=== PATIENT | female | born 1955 | race Caucasian/White ===

== ENCOUNTER 2017-04-05 14:57 | Emergency (ER) | payer SELFPAY ==
[2017-04-05] MEDS ORDERED: ISOVUE-370 76%-LOCM 1 ML ONE (16:11)
[2017-04-05] MEDS ORDERED: Iopamidol 200 41% 50 ML VIAL FS ONE (16:11)
[2017-04-05] MEDS ORDERED: Promethazine HCl 25 MG/ML VIAL ONE (16:12)
[2017-04-05] MEDS ORDERED: Ondansetron HCl/PF 4 MG/2 ML Vial ONE (16:12)
--- NOTE | 2017-04-05 16:29 | RAD ---
PORTABLE CHEST: History: Cough. FINDINGS: No comparison. Heart is upper normal size. Mild vascular engorgement without evidence of overt edema or infiltrate. No effusion. Aortic calcification is seen. IMPRESSION: Heart size upper normal. Lungs are clear with no evidence of focal infiltrate or edema. POS: [facility]
[2017-04-05 17:02] LABS: #Lymphocytes 0.2 thou/uL (1.20-3.40); #Monocytes 0.2 thou/uL (0.11-0.59); #Neutrophils 9.1 thou/uL (1.40-6.50); %Basophils 0.3 % (0.0-1.0); %Eosinophils 0.1 % (0.0-10.0); %Lymphocytes 2.2 % (21.0-51.0); %Monocytes 2.1 % (0.0-10.0); Hematocrit 41.2 % (36.0-47.0); Red Blood Cell (RBC) Count 4.49 mill/uL (4.20-5.40); White Blood Cell (WBC) Count 9.5 thou/uL (4.8-10.8)
[2017-04-05] MEDS ORDERED: Piperacillin/Tazobactam 3.375 GM VIAL ONE (17:20)
[2017-04-05 17:29] LABS: Lactic Acid - Sepsis 2.2 mmol/L (0.5-2.2)
[2017-04-05 17:32] LABS: ALT (SGPT) 25 U/L (8-55); AST (SGOT) 42 U/L (5-34); Alkaline Phosphatase 147 U/L (40-150); Anion Gap 11 mmol/L (10-20); BUN (Urea Nitrogen) 19 mg/dL (9.8-20.1); Bilirubin, Total 4.3 mg/dL (0.2-1.2); Calc. Creatinine Clearance 0 mL/min (70-130); Calcium 8.8 mg/dL (7.8-10.44); Carbon Dioxide 20 mmol/L (22-29); Chloride 105 mmol/L (98-107); Estimated GFR-MDRD 69; Globulin 3.2 g/dL (2.4-3.5); Protein, Total 6.3 g/dL (6.0-8.3)
[2017-04-05 19:58] LABS: Bilirubin Negative (Negative); Blood, Urine Negative (Negative); Glucose, Urine (Dipstick) Negative (Negative); Ketone, Urine Negative (Negative); Nitrite Negative (Negative); Protein, Urine (Dipstick) Negative (Neg-Trace)
[2017-04-05 20:00] LABS: Bacteria/HPF None Seen HPF (None Seen); Hyaline Casts/LPF 0-3 HYALINE CAST LPF (0-3 Hyaline)
[2017-04-05 20:14] LABS: RBC/HPF None Seen HPF (0-3)
--- NOTE | 2017-04-05 21:20 | CT ---
CT ABDOMEN AND PELVIS WITH IV CONTRAST: 04/05/17 HISTORY: Vomiting and back pain, abdominal pain, chills, constipation. FINDINGS: There are dependent changes of the lung bases. The liver demonstrates an irregular surface consisten t with cirrhosis. There is recanalization of the umbilical vein. No liver mass or biliary ductal dil atation is seen. No calcified gallstones are identified. The spleen is enlarged measuring 19.8 cm in AP dimension and 15.2 cm in the CC dimension. Splenic varices are present. The pancreas, adrenal gl ands, and kidneys are normal. No free air, free fluid is seen. A few enlarged retroperitoneal lymph nodes measuring 11 mm in the aortocaval space. There are vascular calcifications without evidence of aneurysmal dilatation of the abdominal aorta. There are calcifications in the uterus indicative of fibroids. The small bowel loops are not abnorma lly dilated. There is prominence in the scanlon of the ascending, descending and sigmoid colon which m ay be due to wall thickening or incomplete distention. There are degenerative changes in the spine. Multiple compressed vertebral bodies are present. There is incomplete visualization of a 17 mm right femoral lymph node with peripheral enhancement and central necrosis. IMPRESSION: 1. Cirrhosis of the liver. 2. Splenomegaly with splenic varices. 3. Uterine fibroids. 4. Wall thickening versus incomplete distention of the colon. POS: [facility]
[2017-04-05] MEDS ORDERED: Ibuprofen 800 MG TAB ONE (22:39)
[2017-04-05] MEDS ORDERED: Acetaminophen 500 MG TAB ONE (22:39)
== END 2017-04-05 22:38 | disposition home or self-care (01) ==
LOC: ERS 14:57
DX: R11.2 Nausea with vomiting, unspecified (principal); I10 Essential (primary) hypertension; G47.30 Sleep apnea, unspecified; J45.909 Unspecified asthma, uncomplicated; E66.9 Obesity, unspecified; G89.29 Other chronic pain; M54.9 Dorsalgia, unspecified; Z87.891 Personal history of nicotine dependence
CPT/HCPCS: 36415; 71010; 74177; 80053; 81003; 81015; 83605; 85025; 87040; 87077; 87086; 87149; 87186; 93005; 96365; 96367; 96375; J2405; J2543; J2550

== ENCOUNTER 2017-04-07 08:29 | Inpatient (IN) | payer SELFPAY ==
--- NOTE | 2017-04-07 09:55 | ULT ---
RIGHT LOWER EXTREMITY VENOUS ULTRASOUND: HISTORY: Bilateral lower extremity edema for months. Redness over the last couple of days. Chronic pain. TECHNIQUE: Multiplanar, stovall scale, and color Doppler images were obtained in a right lower extremity venous ul trasound. Spectral analysis of the Doppler waveforms was performed. FINDINGS: The right common femoral vein, profunda femoral vein, superficial femoral vein, and popliteal vein a re normal in appearance without evidence of thrombus. The vessels demonstrate normal compression, f low, and augmentation. The posterior tibial vein and greater saphenous vein are also patent. IMPRESSION: No evidence of right lower extremity deep vein thrombosis. POS: [facility]
[2017-04-07] MEDS ORDERED: Furosemide 40 MG/4 ML VIAL ONE (09:57)
[2017-04-07] MEDS ORDERED: cefTRIAXone\\ROCEPHIN 2 GM VIAL ONE (09:57)
[2017-04-07] MEDS ORDERED: Sodium Chloride 0.9% 100 ML ONE (09:57)
[2017-04-07 10:21] LABS: #Lymphocytes 0.6 thou/uL (1.20-3.40); #Monocytes 0.8 thou/uL (0.11-0.59); %Basophils 0.3 % (0.0-1.0); %Eosinophils 0.1 % (0.0-10.0); %Lymphocytes 5.4 % (21.0-51.0); %Monocytes 7.3 % (0.0-10.0); Hematocrit 37.7 % (36.0-47.0); Mean Platelet Volume 8.7 fL (7.4-10.4); Red Blood Cell (RBC) Count 4.14 mill/uL (4.20-5.40); White Blood Cell (WBC) Count 10.3 thou/uL (4.8-10.8)
[2017-04-07 10:37] LABS: Lactic Acid - Sepsis 2.5 mmol/L (0.5-2.2)
[2017-04-07 10:40] LABS: ALT (SGPT) 33 U/L (8-55); AST (SGOT) 65 U/L (5-34); Alkaline Phosphatase 123 U/L (40-150); Anion Gap 10 mmol/L (10-20); BUN (Urea Nitrogen) 24 mg/dL (9.8-20.1); Bilirubin, Total 2.1 mg/dL (0.2-1.2); Calc. Creatinine Clearance 0 mL/min (70-130); Calcium 8.7 mg/dL (7.8-10.44); Carbon Dioxide 24 mmol/L (22-29); Chloride 100 mmol/L (98-107); Estimated GFR-MDRD 70; Globulin 3.3 g/dL (2.4-3.5); Protein, Total 6.1 g/dL (6.0-8.3)
[2017-04-07] MEDS ORDERED: Vancomycin HCl 1.5 GM, Admixture Fee 1 EACH in Sodium Chloride 0.9% 250 ML 300 ML IVPB SCH (11:00)
[2017-04-07 13:25] LABS: Magnesium 1.6 mg/dL (1.6-2.6)
[2017-04-07 13:33] LABS: Phosphorus 1.3 mg/dL (2.3-4.7)
[2017-04-07] MEDS ORDERED: Mag-Al 1200 mg/1200 mg/30 ML UDCUP PO PRN (13:49)
[2017-04-07] MEDS ORDERED: hydrALAZINE 20 MG/ML VIAL SLOW IVP PRN (13:49)
[2017-04-07] MEDS ORDERED: Senokot 8.6 MG TAB PO PRN (13:49)
[2017-04-07] MEDS ORDERED: Acetaminophen 325 MG TAB PO PRN (13:49)
[2017-04-07] MEDS ORDERED: Ondansetron ODT 4 MG TAB PO PRN (13:49)
[2017-04-07] MEDS ORDERED: Loratadine 10 MG TAB PO PRN (13:49)
[2017-04-07] MEDS ORDERED: Eucerin (Mineral Oil/Petrolatum,White) 30 gm Jar TOP PRN (13:49)
[2017-04-07] MEDS ORDERED: Artificial Tears 18 DROP/0.9 ML EA EYE PRN (13:49)
[2017-04-07] MEDS ORDERED: Ketorolac Tromethamine 30 MG/ML VIAL IVP PRN (13:49)
[2017-04-07] MEDS ORDERED: Loperamide HCl 2 MG CAP PO PRN (13:49)
[2017-04-07] MEDS ORDERED: Diabetic Tussin 200 MG/10 ML UDCUP PO PRN (13:49)
[2017-04-07] MEDS ORDERED: Milk Of Magnesia 30 ML UDCUP PO PRN (13:49)
[2017-04-07] MEDS ORDERED: Sodium Chloride 0.65% Nasal 44 ML BOT EA NARE PRN (13:49)
[2017-04-07] MEDS ORDERED: Chloraseptic Spray 180 ml Bottle PO PRN (13:49)
[2017-04-07] MEDS ORDERED: Morphine 2 MG/ML SYRINGE SLOW IVP PRN (13:49)
[2017-04-07] MEDS ORDERED: Ondansetron HCl/PF 4 MG/2 ML Vial IVP PRN (13:49)
[2017-04-07 13:52] VITALS: BMI 41.8
--- NOTE | 2017-04-07 14:01 | HP ---
PRIMARY CARE PHYSICIAN: [facility] call admission. REASON FOR ADMISSION: Right lower extremity cellulitis. HISTORY OF PRESENT ILLNESS: A 62-year-old female with a history of alcoholic cirrhosis of liver with portal hypertension who presented to the emergency room with complaint of right lower ext remity pain. This patient is new to our system. The patient is originally from [place], [place]. Patient repo rts that when she was young, at that time, she was having heavy alcoholism history. [place] was in [facility] and incarcerated for 14 years. She reports that she was in [facility] nearby [facility] and she was following [facility]. The patient was diagnosed with cirrhosis of liver abou 8-10 years ago. She was taking oral medications. Per patient, she never had upper or lower endos copic evaluation. Patient reports that since she is in custodial system, she has not drunk alcohol. She reports that she has focal cirrhosis. The patient was recently released from care home under probation and currently she lives at [facility]. Patient came into emergency room with complaint of right lower extremity erythema, swelling, and ten derness for last about 2 weeks, which is gradually gotten worse, but for the last 2 days, she is not icing more swollen and more tender, and she was also having fever of 100.6 on Tuesday. She does have chronic low back pain. She also reports dyspnea on exertion. She denies any chest pain, palpitati on, dizziness, syncope. She denies any nausea, vomiting, hematemesis, melena, and hematochezia. Sh e denies any abdominal pain. She denies any urinary tract infection symptoms. This patient came to emergency room on 04/06/2017. At that time, CT abdomen and pelvis was done and the patient was diagnosed with cirrhosis of liver with splenomegaly and splenic varices and uterine fibroid. The patient was given pain medication and discharged back to [facility], but her pain was get ting worse and that is why she decided to come back to the emergency room for evaluation. Today in the emergency room, ultrasound was done which was negative for DVT. Patient has clinical picture of cellulitis. Patient has received vancomycin, Rocephin, and Lasix in the emergency room. At this point, we are a dmitting this patient to medical floor for further treatment. PAST MEDICAL HISTORY: Hypertension, morbid obesity, chronic low back pain, sleep apnea, asthma, cir rhosis of liver with portal hypertension, history of hepatitis C which she reports that treated with medication. PAST SURGICAL HISTORY: Liver biopsy, tubal ligation. PAST PSYCHIATRIC HISTORY: The patient feels anxiety and depression, but she is not on any treatment . SOCIAL HISTORY: Patient reports that when she was young, she was having heavy alcohol abuse history . She is a former drug abuser, abused heroin and speed. She also smoked cigarettes, but she quit s moking and alcohol everything since she was in custodial about 14 years, currently lives at [facility]. FAMILY HISTORY: Hypertension runs among several family members. No strong family history of ruiz ry artery disease, stroke or cancer. ALLERGIES: No known drug allergies. CURRENT HOME MEDICATIONS: Metoprolol 50 mg p.o. b.i.d., Lasix 40 mg p.o. b.i.d., Aldactone 25 mg tw ice daily, and potassium 1 tablet p.o. daily. REVIEW OF SYSTEMS: The following complete review of systems was negative, unless otherwise mentione d in the HPI or below: Constitutional: Weight loss or gain, ability to conduct usual activities. Skin: Rash, itching. Eyes: Double vision, pain. ENT/Mouth: Nose bleeding, neck stiffness, pain, tenderness. Cardiovascular: Palpitations, dyspnea on exertion, orthopnea. Respiratory: Shortness of breath, wheezing, cough, hemoptysis, fever or night sweats. Gastrointestinal: Poor appetite, abdominal pain, heartburn, nausea, vomiting, constipation, or diar wild. Genitourinary: Urgency, frequency, dysuria, nocturia. Musculoskeletal: Pain, swelling. Neurologic/Psychiatric: Anxiety, depression. Allergy/Immunologic: Skin rash, bleeding tendency. Please see my HPI for pertinent positive and negative. All other review of systems reviewed and neg ative except as mentioned in the HPI. EMERGENCY ROOM COURSE: Patient has received vancomycin 1.5 g, Rocephin 2 g, and Lasix 80 mg. PHYSICAL EXAMINATION: VITAL SIGNS: On arrival, blood pressure 145/69, pulse 103, respiratory rate 20, temperature 98.1, s aturation 98% on room air, and weight 107.5 kilograms. GENERAL: Patient is currently alert, awake, no obvious acute distress. HEAD: Normocephalic, atraumatic. EYES: Pupils round, reactive to light. Extraocular muscle intake. No nystagmus, no pallor, no ict erus. Moist mucous membranes. NECK: Supple. Range of motion is normal. No meningeal signs of irritation. No JVD, no thyromegal y, no carotid bruit. LUNGS: Clear to auscultation without any rhonchi or rales. CARDIAC: S1 and S2 regular without any murmur. ABDOMEN: Morbid obesity present. Bowel sounds present, nontender, nondistended. No organomegaly, no mass, no suprapubic tenderness. Morbid obesity limiting examination. BACK: Examination unremarkable, no CVA tenderness. EXTREMITIES: Upper extremity passive movements of all joints are normal. Lower extremity, patient does have bilateral chronic lower extremity edema. Right lower extremity is erythematous, tender an d warm. No calf tenderness. Distal pulsation intact. NEUROLOGIC: Nonfocal examination. No asterixis. Speech normal. Cranial nerves II-XII intact. Mo tor and sensation within normal limits. No focal neurological deficit noted. SKIN: No skin rash other than right lower extremity cellulitis. PSYCHIATRIC: Normal affect. IMAGING AND SIGNIFICANT LABORATORY DATA: 1. Ultrasound of lower extremity negative for any DVT. 2. CT of the abdomen and pelvis which was done a couple of days ago showed cirrhosis of liver, sple nomegaly with splenic varices, uterine fibroid, colon wall thickening. 3. CBC: WBC 10.3, hemoglobin 12.4, platelet 75 with left shift. 4. BMP: Sodium 131, potassium 3.3, chloride 100, carbon dioxide 24, BUN 24, creatinine 0.83, gluco se 153, lactic acid 2.5, calcium 8.7. 5. LFT: Bilirubin 2.1, AST 65, ALT 33, alkaline phosphatase 123, albumin 2.8, BNP 183.2, CRP 15.2. ASSESSMENT AND PLAN/IMPRESSION: 1. Acute right lower extremity cellulitis. This patient has associated sepsis. She has lactic aci dosis. She was having fever at home. She has high CRP and clinical examination with erythema, tend erness, warmth and significant swelling consistent with cellulitis. She does not have any deep veno us thrombosis based on ultrasound. At this point, patient has received vancomycin and Rocephin in [facility] emergency room. We will continue Rocephin after admission as well as vancomycin. Pharmacy will adjust dose of vancomycin. The patient is advised to keep right lower extremity elevated. We will control her pain with morphine 2 mg q.4 hourly p.r.n. and Toradol 15 mg IV q.6 hourly p.r.n. 2. Cirrhosis of liver with portal hypertension. This patient has hyponatremia, abnormal LFT, hypoa lbuminemia, thrombocytopenia as well as previous history of alcoholism and hepatitis C. This patient had CT abdomen which confirmed cirrhosis of liver with portal hypertension. Patient never had any upper and lower endoscopy. We will consult contact lens technician to decide about endoscopic evaluation . We will continue with Lasix, Aldactone, Corgard therapy while in hospital. 3. Hyponatremia likely related with p.o. fluid overload status from cirrhosis of liver. The patien t will need fluid restriction to 1500 mL per day. We will continue with Lasix 20 mg IV b.i.d. We w ill monitor basic metabolic panel. 4. Hypokalemia. We will check magnesium, phosphorus, and replace potassium 40 mEq p.o. b.i.d. and we will repeat basic metabolic panel tomorrow. 5. Lactic acidosis, likely due to underlying sepsis. We will repeat lactic acid level tomorrow. 6. Thrombocytopenia likely due to cirrhosis of liver with hypersplenism. We will avoid heparin pro duct. 7. Morbid obesity. Dietary education given, weight loss education given. Low salt diet discussed with the patient. 8. Hypertension. We will continue Lasix, Aldactone, and Corgard and we will monitor the patient's blood pressure while in hospital. 9. Chronic low back pain. Patient's pain will be controlled with pain medication while in hospital . 10. Anxiety and depression. The patient is not on any specific treatment, but we will consider add ing Prozac upon discharge. 11. Deep venous thrombosis prophylaxis, sequential compression device boots. No Lovenox because of low platelet count. 12. Gastrointestinal prophylaxis, Protonix 40 mg p.o. daily. 13. Asthma. We will continue DuoNeb therapy every 6 hourly. 14. Elevated BNP, likely related with fluid overload status from cirrhosis of liver. CODE STATUS: Patient is FULL CODE. Patient's sister is surrogate decision maker. Disposition plan based on clinical course. We are expecting patient's stay in hospital more than 2 midnights. Plan of care discussed with the patient in detail.
[2017-04-07] MEDS: Potassium Phosphate 15 MMOL in Sodium Chloride 0.9% 250 ML 250 ML IVPB SCH ×2 (14:48→15:49)
[2017-04-07 14:51] LABS: Bilirubin Negative (Negative); Blood, Urine Negative (Negative); Glucose, Urine (Dipstick) Negative (Negative); Ketone, Urine Negative (Negative); Nitrite Negative (Negative); Protein, Urine (Dipstick) Negative (Neg-Trace); Urobilinogen 0.2 mg/dL (0.2-1.0)
[2017-04-07 15:04] LABS: Bacteria/HPF None Seen HPF (None Seen); Hyaline Casts/LPF 4-6 HYALINE CAST LPF (0-3 Hyaline); RBC/HPF 0-3 HPF (0-3); Squamous Epithelial 0-3 HPF (0-3); WBC/HPF 0-3 HPF (0-3)
[2017-04-07 15:20] LABS: Yeast-All Forms None Seen HPF (None Seen)
[2017-04-07] MEDS: Potassium Chloride 20 MEQ TAB PO SCH (15:22)
[2017-04-07] MEDS: Furosemide 20 MG/2 ML VIAL SLOW IVP SCH (15:22)
[2017-04-07] MEDS: HYDROcodone/Acetaminophen 5/325 mg Tablet PO PRN ×2 (15:27→20:06)
[2017-04-07] MEDS: Vancomycin HCl 1.5 GM in Sodium Chloride 0.9% 250 ML 300 ML IVPB SCH (23:03)
--- NOTE | 2017-04-08 03:04 | CON ---
DATE OF CONSULTATION: 04/07/2017 CHIEF COMPLAINT: Leg pain. HISTORY OF PRESENT ILLNESS: Ms. Mora is a 62-year-old woman who was just released from a 14-year senior care sentence 2 days ago. She came to the emergency room yesterday with right lower extremity lorraine n and swelling and she came back today and was diagnosed with cellulitis with sepsis. She had a vas cular ultrasound that was negative for DVT. She was noted to have a history of cirrhosis and GI was consulted to evaluate this. She was diagnosed with cirrhosis 6-8 years ago. She was treated for h epatitis C a year and a half ago with Harvoni and reportedly cleared the virus. She drank alcohol i n the distant past but has been off alcohol for the last 14 years since she has been in senior care. She has had lower extremity swelling and abdominal swelling in the past and has been treated with Lasix and metolazone. She states she has lost from 300 pounds to 236 pounds since starting the diuretics . She has had no ongoing nausea and vomiting. No diarrhea. She has had constipation with small lay rd stools. She has been treated with lactulose in the past for that. She has not had acute confusi on but has had trouble sleeping. She does not recall having had routine screening for hepatoma. Vanessa villavicencio has never had upper or lower endoscopy. PAST MEDICAL HISTORY: Cirrhosis of the liver secondary to past alcohol and hepatitis C, hypertensio n, morbid obesity, chronic back pain, sleep apnea, asthma. PAST SURGICAL HISTORY: Tubal ligation, liver biopsy. FAMILY HISTORY: Negative for GI malignancy or liver disease. SOCIAL HISTORY: She has a history of alcohol abuse and drug abuse including IV drugs prior to her i ncarceration. She has been off all substances for the last 14 years. She does not smoke. ALLERGIES: No known drug allergies. MEDICATIONS: Metoprolol 50 mg twice daily, Lasix 40 mg twice daily, Aldactone 25 mg twice daily, po tassium 1 tablet daily, these were her outpatient medications. Currently, as an inpatient, she is o n ceftriaxone, furosemide 20 mg IV twice daily, magnesium oxide, nadolol, pantoprazole, saccharomyce s, spironolactone 25 mg twice daily, and vancomycin. REVIEW OF SYSTEMS: Negative x10 systems reviewed except as stated in the history of present illness . PHYSICAL EXAMINATION: VITAL SIGNS: Temperature 98.1, pulse 99, respirations 16, blood pressure 121/73. GENERAL: She is in no acute distress. She is alert and oriented x3. HEENT: Eyes have no scleral icterus. Oropharynx is clear without lesions. NECK: No cervical or supraclavicular lymphadenopathy. LUNGS: Clear to auscultation bilaterally. HEART: Regular rate and rhythm. ABDOMEN: Soft, nontender currently. Bowel sounds are present. EXTREMITIES: 2+ pitting lower extremity edema with marked erythema in the right lower extremity wit h cellulitis. SKIN: Also reveals multiple spider angiomas on her upper chest. LABORATORY DATA: White blood cell count 10.3, hemoglobin 12.4, platelets 75. Sodium 131, potassium 3.3, chloride 100, CO2 of 24, BUN 24, creatinine 0.83, bilirubin 2.1, AST 65, ALT 33, alkaline phos phatase 123, albumin 2.8. IMPRESSION: 1. Cirrhosis of the liver secondary to hepatitis C and past alcohol. Her hepatitis C was reportedl y cured with Harvoni. I would check hepatitis C RNA to verify clearance at this point. She is deco mpensated with elevated bilirubin, history of ascites, and portal hypertension with thrombocytopenia . The low sodium can be a negative prognostic sign. Her albumin is low. INR is pending. 2. She is due for hepatoma screening. 3. She is due for varices screening and colon cancer screening. 4. The status of hepatitis A and B exposure or vaccinations not known at this time. RECOMMENDATIONS: 1. Check hepatitis C RNA, check PT/INR, check alpha-fetoprotein. 2. Check ultrasound of the liver for hepatoma screening as well. 3. Check hepatitis A and B immune status. 4. Low-salt diet. She remains on low-dose Aldactone and a higher dose furosemide. 5. Follow up as an outpatient to arrange upper and lower endoscopy. 6. With outpatient followup, she can be referred for liver transplant evaluation; however, currentl y, she does not have insurance. 7. She does have underlying constipation; and therefore, we will start a low dose of lactulose negro y to treat this. 8. She remains on antibiotics for right lower extremity cellulitis. 9. She has been started on nadolol. She did have a CT scan of the abdomen on 04/05/2017, which cecilia wed splenomegaly with splenic varices. It may be reasonable to treat with beta-ang at this poin t. 10. She plans on being in the residential house for 90 days and then will move back home to [place] .
[2017-04-08 04:38] LABS: Prothrombin Time 15.5 SEC (12.0-14.7)
[2017-04-08 04:48] LABS: ALT (SGPT) 30 U/L (8-55); AST (SGOT) 47 U/L (5-34); Alkaline Phosphatase 145 U/L (40-150); Anion Gap 11 mmol/L (10-20); BUN (Urea Nitrogen) 27 mg/dL (9.8-20.1); Bilirubin, Total 1.7 mg/dL (0.2-1.2); Calc. Creatinine Clearance 128 mL/min (70-130); Calcium 8.2 mg/dL (7.8-10.44); Carbon Dioxide 23 mmol/L (22-29); Chloride 99 mmol/L (98-107); Estimated GFR-MDRD 74; Globulin 3.2 g/dL (2.4-3.5); Protein, Total 5.9 g/dL (6.0-8.3)
[2017-04-08 05:15] LABS: Band 7 % (5-11); Hematocrit 37.2 % (36.0-47.0); Mean Platelet Volume 8.6 fL (7.4-10.4); Neutrophil 77 % (42-75); Reactive Lymphocytes 2 % (0-10); Red Blood Cell (RBC) Count 4.08 mill/uL (4.20-5.40); White Blood Cell (WBC) Count 8.9 thou/uL (4.8-10.8)
[2017-04-08] MEDS: Furosemide 20 MG/2 ML VIAL SLOW IVP SCH ×2 (06:21→14:37)
[2017-04-08] MEDS: Saccharomyces boulardii 250 MG CAP PO SCH (08:14)
[2017-04-08] MEDS: Spironolactone 25 MG TAB PO SCH (08:14)
[2017-04-08] MEDS: Potassium Chloride 20 MEQ TAB PO SCH ×2 (08:14→17:24)
[2017-04-08] MEDS: Magnesium Oxide 400 MG TAB PO SCH (08:14)
[2017-04-08] MEDS: Nadolol 40 MG TAB PO SCH (08:14)
[2017-04-08] MEDS: HYDROcodone/Acetaminophen 5/325 mg Tablet PO PRN ×2 (08:17→19:51)
[2017-04-08] MEDS ORDERED: Potassium Phosphate 15 MMOL, Admixture Fee 1 EACH in Sodium Chloride 0.9% 250 ML 250 ML IVPB SCH (08:30)
[2017-04-08] MEDS ORDERED: FLU VACC QS2017-18 36 mo. & older 0.5 ML SYRINGE IM ONE (09:00)
[2017-04-08] MEDS: cefTRIAXone\\ROCEPHIN 2 GM in Sodium Chloride 0.9% 100 ML IVPB SCH (09:24)
--- NOTE | 2017-04-08 11:39 | PDOC.PN ---
- Subjective Encounter Start Date: 04/08/17 Encounter Start Time: 09:00 -: old records requested/rev Patient seen and examined. No new complaints. No overnight events, pt has right leg pain - Objective Resuscitation Status: Resuscitation Status FULL:Full Resuscitation MAR Reviewed: Yes Vital Signs & Weight: Vital Signs (12 hours) Temp Pulse Resp BP BP Pulse Ox 04/08/17 08:00 99.1 F 84 16 98 04/08/17 07:28 99.1 F 84 16 137/79 98 04/08/17 04:00 98.4 F 85 20 116/69 97 04/08/17 00:00 98.0 F 80 20 124/75 98 I&O: 04/07/17 04/08/17 04/09/17 06:59 06:59 06:59 Intake Total 1970 240 Output Total 1800 Balance 170 240 Result Diagrams: 04/08/17 03:56 04/08/17 03:56 Phys Exam - Physical Examination Constitutional: NAD HEENT: PERRLA, moist MMs, sclera anicteric Neck: no JVD, supple Respiratory: no wheezing, no rales, no rhonchi Cardiovascular: RRR, no significant murmur, no rub Gastrointestinal: soft, non-tender, no distention, positive bowel sounds obesity+ Musculoskeletal: pulses present, edema present cellulitis right leg Neurological: non-focal, normal sensation, moves all 4 limbs Psychiatric: normal affect, A&O x 3 Skin: no rash, normal turgor Dx/Plan (1) Cellulitis of right leg Code(s): L03.115 - CELLULITIS OF RIGHT LOWER LIMB Status: Acute (2) Elevated brain natriuretic peptide (BNP) level Code(s): R79.89 - OTHER SPECIFIED ABNORMAL FINDINGS OF BLOOD CHEMISTRY Status : Acute (3) Hypokalemia Code(s): E87.6 - HYPOKALEMIA Status: Acute (4) Hyponatremia Code(s): E87.1 - HYPO-OSMOLALITY AND HYPONATREMIA Status: Acute (5) Hypophosphatemia Code(s): E83.39 - OTHER DISORDERS OF PHOSPHORUS METABOLISM Status: Acute (6) Lactic acidosis Code(s): E87.2 - ACIDOSIS Status: Acute (7) Anxiety and depression Code(s): F41.8 - OTHER SPECIFIED ANXIETY DISORDERS Status: Chronic (8) Asthma Code(s): J45.909 - UNSPECIFIED ASTHMA, UNCOMPLICATED Status: Chronic (9) Cirrhosis of liver Code(s): K74.60 - UNSPECIFIED CIRRHOSIS OF LIVER Status: Chronic (10) Morbid obesity with BMI of 40.0-44.9, adult Code(s): E66.01 - MORBID (SEVERE) OBESITY DUE TO EXCESS CALORIES; Z68.41 - BODY MASS INDEX (BMI) 40.0-44.9, ADULT Status: Chronic (11) Portal hypertension Code(s): K76.6 - PORTAL HYPERTENSION Status: Chronic (12) Thrombocytopenia Code(s): D69.6 - THROMBOCYTOPENIA, UNSPECIFIED Status: Chronic - Plan cont current plan of care, continue antibiotics * continue rocephin and vancomycin for period of time, she will need longer treatment in hospital * GI is not planning to do any procedure this admission * medication reviewed as below * symptomatic treatment * replace potassium phosphate * continue diuresis. Review of Systems - Review of Systems Constitutional: negative: Fever, Chills, Sweats, Weakness, Malaise, Other ENT: negative: Ear Pain, Ear Discharge, Nose Pain, Nose Discharge, Nose Congestion, Mouth Pain, Mouth Swelling, Throat Pain, Throat Swelling, Other Respiratory: negative: Cough, Dry, Shortness of Breath, Hemoptysis, SOB with Excertion, Pleuritic Pain, Sputum, Wheezing Cardiovascular: Edema. negative: Chest Pain, Palpitations, Orthopnea, Paroxysmal Noc. Dyspnea, Light Headedness, Other Gastrointestinal: negative: Nausea, Vomiting, Abdominal Pain, Diarrhea, Constipation, Melena, Hematochezia, Other Genitourinary: negative: Dysuria, Frequency, Incontinence, Hematuria, Retention , Other Musculoskeletal: Leg Pain. negative: Neck Pain, Shoulder Pain, Arm Pain, Back Pain, Hand Pain, Foot Pain, Other - Medications/Allergies Allergies/Adverse Reactions: Allergies Allergy/AdvReac Type Severity Reaction Status Date / Time No Known Allergies Allergy Verified 04/07/17 14:47 Medications: Current Medications Acetaminophen (Tylenol) 650 mg PO Q4H PRN PRN Reason: Headache/Fever or Pain Hydrocodone Bitart/Acetaminophen ([place] 5/325) 1 tab PO Q4H PRN PRN Reason: Moderate Pain (4-6) Last Admin: 04/08/17 08:17 Dose: 1 tab Al Hydroxide/Mg Hydroxide (Maalox) 30 ml PO Q6H PRN PRN Reason: Heartburn or Indigestion Albuterol/Ipratropium (Duoneb) 3 ml NEB [id number] PRN PRN Reason: SOB &/or Wheezing Artificial Tears (Tears Naturale) 0 drop EA EYE PRN PRN PRN Reason: Dry Eyes Furosemide (Lasix) 20 mg SLOW IVP 0600,1400 [facility] Last Admin: 04/08/17 06:21 Dose: 20 mg Guaifenesin (Robitussin Sf) 200 mg PO Q4H PRN PRN Reason: Cough Hydralazine HCl (Apresoline) 10 mg SLOW IVP Q4H PRN PRN Reason: Systolic BP > 180 Ceftriaxone Sodium 2 gm/ (Sodium Chloride) 100 mls @ 200 mls/hr IVPB 1000 [facility] Last Admin: 04/08/17 09:24 Dose: 100 mls Vancomycin HCl 1.5 gm/ Sodium (Chloride) 300 mls @ 200 mls/hr IVPB 1200,2359 [facility] Last Admin: 04/07/17 23:03 Dose: 300 mls Potassium Phosphate 15 mmol/Miscellaneous Medication 1 each/ Sodium Chloride 255 mls @ 62.5 mls/hr IVPB ONE [facility] Stop: 04/08/17 12:00 Last Admin: 04/08/17 10:24 Dose: 255 mls Ketorolac Tromethamine (Toradol) 15 mg IVP Q6H PRN PRN Reason: Pain Stop: 04/12/17 13:50 Loperamide HCl (Imodium) 2 mg PO PRN PRN PRN Reason: Diarrhea/Loose Stools Loratadine (Claritin) 10 mg PO DAILYPRN PRN PRN Reason: Sinus Symptoms Magnesium Hydroxide (Milk Of Magnesium) 30 ml PO DAILYPRN PRN PRN Reason: Constipation Magnesium Oxide (Magnesium Oxide) 400 mg PO DAILY [facility] Last Admin: 04/08/17 08:14 Dose: 400 mg Mineral Oil/White Petrolatum (Eucerin Cream) 0 gm TOP BIDPRN PRN PRN Reason: Dry Skin Miscellaneous Medication (Pharmacy To Dose) 1 each IVPB PRN PRN PRN Reason: Pharmacy to dose Morphine Sulfate (Morphine Sulfate) 2 mg SLOW IVP Q4H PRN PRN Reason: Pain Nadolol (Corgard) 40 mg PO DAILY [facility] Last Admin: 04/08/17 08:14 Dose: 40 mg Ondansetron HCl (Zofran Odt) 4 mg PO Q6H PRN PRN Reason: Nausea/Vomiting Ondansetron HCl (Zofran) 4 mg IVP Q6H PRN PRN Reason: Nausea/Vomiting Pantoprazole Sodium (Protonix) 40 mg PO DAILY [facility] Last Admin: 04/08/17 08:14 Dose: 40 mg Phenol (Chloraseptic [place] 180 Ml Bot) 0 ml PO PRN PRN PRN Reason: Sore Throat Potassium Chloride (K-Dur) 20 meq PO BID-[facility] Last Admin: 04/08/17 08:14 Dose: 20 meq Saccharomyces Boulardii (Florastor) 250 mg PO DAILY [facility] Last Admin: 04/08/17 08:14 Dose: 250 mg Senna (Senokot) 2 tab PO HSPRN PRN PRN Reason: Constipation Sodium Chloride ([place] Nasal [place] 0.65%) 0 ml EA NARE QIDPRN PRN PRN Reason: Nasal Congestion Spironolactone (Aldactone) 25 mg PO QAM-[facility] Last Admin: 04/08/17 08:14 Dose: 25 mg
[2017-04-08] MEDS: Vancomycin HCl 1.5 GM in Sodium Chloride 0.9% 250 ML 300 ML IVPB SCH (14:34)
--- NOTE | 2017-04-08 16:43 | PRG ---
DATE OF SERVICE: 04/08/2017 SUBJECTIVE: Ms. Mora is having some improvements in her left lower extremity discomfort. She has had some intermittent left upper quadrant abdominal pain which is stable. OBJECTIVE: VITAL SIGNS: Temperature 97.6, pulse 60, and blood pressure 121/81. GENERAL: She is in no acute distress, awake and alert. LUNGS: Clear to auscultation bilaterally. HEART: Regular rate and rhythm. ABDOMEN: Soft, nontender, and nondistended. Bowel sounds are present. EXTREMITIES: 2+ pitting lower extremity edema with severe erythema in the right lower extremity. LABORATORY DATA: Hemoglobin 12.1, platelets 72, INR 1.2, bilirubin 1.7, creatinine 0.79, AST 47, AL T 30, alkaline phosphatase 145, and albumin 2.7. IMPRESSION: Cirrhosis of the liver secondary to past hepatitis C, reportedly treated with Rashid w ith clearance of the virus and remote alcohol use. She has been off alcohol for the last 14 years s [place] incarceration. She was just released from long-term few days ago. RECOMMENDATIONS: 1. Await hepatitis C RNA level. Await alphafetoprotein. 2. Low salt diet. 3. Follow up in GI Clinic for further evaluation and management of her liver disease. Should event beto undergo varices screening with endoscopy and screening colonoscopy. 4. Dr. Scott will be covering the weekend. I will sign off for now. Please call him if needed .
[2017-04-09] MEDS: Vancomycin HCl 1.5 GM in Sodium Chloride 0.9% 250 ML 300 ML IVPB SCH ×3 (01:36→23:23)
[2017-04-09] MEDS: HYDROcodone/Acetaminophen 5/325 mg Tablet PO PRN ×3 (01:40→20:09)
[2017-04-09] MEDS: Furosemide 20 MG/2 ML VIAL SLOW IVP SCH ×2 (06:02→15:57)
[2017-04-09 07:25] LABS: Hepatitis A Total ABS Positive (Negative)
[2017-04-09] MEDS: Saccharomyces boulardii 250 MG CAP PO SCH (08:11)
[2017-04-09] MEDS: Magnesium Oxide 400 MG TAB PO SCH (08:11)
[2017-04-09] MEDS: Spironolactone 25 MG TAB PO SCH (08:11)
[2017-04-09] MEDS: Nadolol 40 MG TAB PO SCH (08:11)
[2017-04-09] MEDS: Potassium Chloride 20 MEQ TAB PO SCH ×2 (08:11→16:00)
[2017-04-09] MEDS: cefTRIAXone\\ROCEPHIN 2 GM in Sodium Chloride 0.9% 100 ML IVPB SCH (10:50)
--- NOTE | 2017-04-09 11:23 | PDOC.PN ---
- Subjective Encounter Start Date: 04/09/17 Encounter Start Time: 08:50 pt continue to have pain in right leg and erythema, no fever - Objective Resuscitation Status: Resuscitation Status FULL:Full Resuscitation MAR Reviewed: Yes Vital Signs & Weight: Vital Signs (12 hours) Temp Pulse Resp BP Pulse Ox 04/09/17 08:23 98.2 F 67 16 130/77 94 L I&O: 04/08/17 04/09/17 04/10/17 06:59 06:59 06:59 Intake Total 1970 2470 Output Total 1800 Balance 170 2470 Result Diagrams: 04/08/17 03:56 04/08/17 03:56 Phys Exam - Physical Examination Constitutional: NAD HEENT: PERRLA, moist MMs, sclera anicteric Neck: no JVD, supple Respiratory: no wheezing, no rales, no rhonchi Cardiovascular: RRR, no significant murmur, no rub Gastrointestinal: soft, non-tender, no distention, positive bowel sounds Musculoskeletal: pulses present, edema present right leg cellulitis Neurological: non-focal, normal sensation, moves all 4 limbs Psychiatric: normal affect, A&O x 3 Skin: no rash, normal turgor Dx/Plan (1) Cellulitis of right leg Code(s): L03.115 - CELLULITIS OF RIGHT LOWER LIMB Status: Acute (2) Elevated brain natriuretic peptide (BNP) level Code(s): R79.89 - OTHER SPECIFIED ABNORMAL FINDINGS OF BLOOD CHEMISTRY Status : Acute (3) Hypokalemia Code(s): E87.6 - HYPOKALEMIA Status: Acute (4) Hyponatremia Code(s): E87.1 - HYPO-OSMOLALITY AND HYPONATREMIA Status: Acute (5) Hypophosphatemia Code(s): E83.39 - OTHER DISORDERS OF PHOSPHORUS METABOLISM Status: Acute (6) Lactic acidosis Code(s): E87.2 - ACIDOSIS Status: Acute (7) Anxiety and depression Code(s): F41.8 - OTHER SPECIFIED ANXIETY DISORDERS Status: Chronic (8) Asthma Code(s): J45.909 - UNSPECIFIED ASTHMA, UNCOMPLICATED Status: Chronic (9) Cirrhosis of liver Code(s): K74.60 - UNSPECIFIED CIRRHOSIS OF LIVER Status: Chronic (10) Morbid obesity with BMI of 40.0-44.9, adult Code(s): E66.01 - MORBID (SEVERE) OBESITY DUE TO EXCESS CALORIES; Z68.41 - BODY MASS INDEX (BMI) 40.0-44.9, ADULT Status: Chronic (11) Portal hypertension Code(s): K76.6 - PORTAL HYPERTENSION Status: Chronic (12) Thrombocytopenia Code(s): D69.6 - THROMBOCYTOPENIA, UNSPECIFIED Status: Chronic - Plan cont current plan of care, continue antibiotics * given her severity of cellulitis, she will need longer than usual treatment with IV antibiotics * medication reviewed as below * symptomatic treatment * pain control. Review of Systems - Review of Systems Constitutional: negative: Fever, Chills, Sweats, Weakness, Malaise, Other Eyes: negative: Pain, Vision Change, Conjunctivae Inflammation, Eyelid Inflammation, Redness, Other ENT: negative: Ear Pain, Ear Discharge, Nose Pain, Nose Discharge, Nose Congestion, Mouth Pain, Mouth Swelling, Throat Pain, Throat Swelling, Other Respiratory: negative: Cough, Dry, Shortness of Breath, Hemoptysis, SOB with Excertion, Pleuritic Pain, Sputum, Wheezing Cardiovascular: negative: Chest Pain, Palpitations, Orthopnea, Paroxysmal Noc. Dyspnea, Edema, Light Headedness, Other Gastrointestinal: negative: Nausea, Vomiting, Abdominal Pain, Diarrhea, Constipation, Melena, Hematochezia, Other Genitourinary: negative: Dysuria, Frequency, Incontinence, Hematuria, Retention , Other Musculoskeletal: Leg Pain. negative: Neck Pain, Shoulder Pain, Arm Pain, Back Pain, Hand Pain, Foot Pain, Other - Medications/Allergies Allergies/Adverse Reactions: Allergies Allergy/AdvReac Type Severity Reaction Status Date / Time No Known Allergies Allergy Verified 04/07/17 14:47 Medications: Current Medications Acetaminophen (Tylenol) 650 mg PO Q4H PRN PRN Reason: Headache/Fever or Pain Hydrocodone Bitart/Acetaminophen ([place] 5/325) 1 tab PO Q4H PRN PRN Reason: Moderate Pain (4-6) Last Admin: 04/09/17 08:46 Dose: 1 tab Al Hydroxide/Mg Hydroxide (Maalox) 30 ml PO Q6H PRN PRN Reason: Heartburn or Indigestion Albuterol/Ipratropium (Duoneb) 3 ml NEB [id number] PRN PRN Reason: SOB &/or Wheezing Artificial Tears (Tears Naturale) 0 drop EA EYE PRN PRN PRN Reason: Dry Eyes Furosemide (Lasix) 20 mg SLOW IVP 0600,1400 [facility] Last Admin: 04/09/17 06:02 Dose: 20 mg Guaifenesin (Robitussin Sf) 200 mg PO Q4H PRN PRN Reason: Cough Hydralazine HCl (Apresoline) 10 mg SLOW IVP Q4H PRN PRN Reason: Systolic BP > 180 Ceftriaxone Sodium 2 gm/ (Sodium Chloride) 100 mls @ 200 mls/hr IVPB 1000 [facility] Last Admin: 04/09/17 10:50 Dose: 100 mls Vancomycin HCl 1.5 gm/ Sodium (Chloride) 300 mls @ 200 mls/hr IVPB 1200,2359 [facility] Last Admin: 04/09/17 01:36 Dose: 300 mls Ketorolac Tromethamine (Toradol) 15 mg IVP Q6H PRN PRN Reason: Pain Stop: 04/12/17 13:50 Loperamide HCl (Imodium) 2 mg PO PRN PRN PRN Reason: Diarrhea/Loose Stools Loratadine (Claritin) 10 mg PO DAILYPRN PRN PRN Reason: Sinus Symptoms Magnesium Hydroxide (Milk Of Magnesium) 30 ml PO DAILYPRN PRN PRN Reason: Constipation Magnesium Oxide (Magnesium Oxide) 400 mg PO DAILY [facility] Last Admin: 04/09/17 08:11 Dose: 400 mg Mineral Oil/White Petrolatum (Eucerin Cream) 0 gm TOP BIDPRN PRN PRN Reason: Dry Skin Miscellaneous Medication (Pharmacy To Dose) 1 each IVPB PRN PRN PRN Reason: Pharmacy to dose Morphine Sulfate (Morphine Sulfate) 2 mg SLOW IVP Q4H PRN PRN Reason: Pain Nadolol (Corgard) 40 mg PO DAILY [facility] Last Admin: 04/09/17 08:11 Dose: 40 mg Ondansetron HCl (Zofran Odt) 4 mg PO Q6H PRN PRN Reason: Nausea/Vomiting Ondansetron HCl (Zofran) 4 mg IVP Q6H PRN PRN Reason: Nausea/Vomiting Pantoprazole Sodium (Protonix) 40 mg PO DAILY [facility] Last Admin: 04/09/17 08:11 Dose: 40 mg Phenol (Chloraseptic [place] 180 Ml Bot) 0 ml PO PRN PRN PRN Reason: Sore Throat Potassium Chloride (K-Dur) 20 meq PO BID-WM [facility] Last Admin: 04/09/17 08:11 Dose: 20 meq Saccharomyces Boulardii (Florastor) 250 mg PO DAILY [facility] Last Admin: 04/09/17 08:11 Dose: 250 mg Senna (Senokot) 2 tab PO HSPRN PRN PRN Reason: Constipation Sodium Chloride ([place] Nasal [place] 0.65%) 0 ml EA NARE QIDPRN PRN PRN Reason: Nasal Congestion Spironolactone (Aldactone) 25 mg PO QAM-WM [facility] Last Admin: 04/09/17 08:11 Dose: 25 mg
[2017-04-10] MEDS: Furosemide 20 MG/2 ML VIAL SLOW IVP SCH ×2 (05:12→14:24)
[2017-04-10 05:38] LABS: Anion Gap 9 mmol/L (10-20); BUN (Urea Nitrogen) 31 mg/dL (9.8-20.1); Calc. Creatinine Clearance 137 mL/min (70-130); Calcium 8.8 mg/dL (7.8-10.44); Carbon Dioxide 30 mmol/L (22-29); Chloride 96 mmol/L (98-107); Estimated GFR-MDRD 80
[2017-04-10 05:46] LABS: Phosphorus 1.9 mg/dL (2.3-4.7)
[2017-04-10 06:22] LABS: Band 6 % (5-11); Hematocrit 38.8 % (36.0-47.0); Mean Platelet Volume 7.8 fL (7.4-10.4); Metamyelocyte 4 % (0-0); Myelocyte 1 % (0-0); Neutrophil 58 % (42-75); Reactive Lymphocytes 2 % (0-10); Red Blood Cell (RBC) Count 4.26 mill/uL (4.20-5.40); White Blood Cell (WBC) Count 12.2 thou/uL (4.8-10.8)
[2017-04-10] MEDS: Saccharomyces boulardii 250 MG CAP PO SCH (07:52)
[2017-04-10] MEDS: Nadolol 40 MG TAB PO SCH (07:53)
[2017-04-10] MEDS: Magnesium Oxide 400 MG TAB PO SCH (07:53)
[2017-04-10] MEDS: Spironolactone 25 MG TAB PO SCH (07:53)
[2017-04-10] MEDS: Potassium Chloride 20 MEQ TAB PO SCH ×2 (07:53→16:38)
[2017-04-10] MEDS: HYDROcodone/Acetaminophen 5/325 mg Tablet PO PRN ×2 (08:12→16:38)
[2017-04-10] MEDS: cefTRIAXone\\ROCEPHIN 2 GM in Sodium Chloride 0.9% 100 ML IVPB SCH (10:10)
[2017-04-10 11:19] LABS: Vancomycin, Trough 21.6 ug/mL
[2017-04-10] MEDS: Vancomycin HCl 1.5 GM in Sodium Chloride 0.9% 250 ML 300 ML IVPB SCH (11:21)
--- NOTE | 2017-04-10 12:13 | PDOC.PN ---
- Subjective Encounter Start Date: 04/10/17 Encounter Start Time: 09:15 pt has serous drainage and blister in right leg, no fever, has leg pain - Objective Resuscitation Status: Resuscitation Status FULL:Full Resuscitation MAR Reviewed: Yes Vital Signs & Weight: Vital Signs (12 hours) Temp Pulse Resp BP Pulse Ox 04/10/17 07:51 98.0 F 68 16 150/67 H 97 I&O: 04/09/17 04/10/17 04/11/17 06:59 06:59 06:59 Intake Total 2470 1770 Balance 2470 1770 Result Diagrams: 04/10/17 04:27 04/10/17 04:27 Phys Exam - Physical Examination Constitutional: NAD HEENT: PERRLA, moist MMs, sclera anicteric Neck: no JVD, supple Respiratory: no wheezing, no rales, no rhonchi Cardiovascular: RRR, no significant murmur, no rub Gastrointestinal: soft, non-tender, no distention, positive bowel sounds Musculoskeletal: pulses present, edema present right leg with erythema, blister and serous drainage Neurological: non-focal, normal sensation, moves all 4 limbs Psychiatric: normal affect, A&O x 3 Skin: no rash, normal turgor Dx/Plan (1) Cellulitis of right leg Code(s): L03.115 - CELLULITIS OF RIGHT LOWER LIMB Status: Acute (2) Elevated brain natriuretic peptide (BNP) level Code(s): R79.89 - OTHER SPECIFIED ABNORMAL FINDINGS OF BLOOD CHEMISTRY Status : Acute (3) Hypokalemia Code(s): E87.6 - HYPOKALEMIA Status: Resolved (4) Hyponatremia Code(s): E87.1 - HYPO-OSMOLALITY AND HYPONATREMIA Status: Acute (5) Hypophosphatemia Code(s): E83.39 - OTHER DISORDERS OF PHOSPHORUS METABOLISM Status: Acute (6) Lactic acidosis Code(s): E87.2 - ACIDOSIS Status: Resolved (7) Anxiety and depression Code(s): F41.8 - OTHER SPECIFIED ANXIETY DISORDERS Status: Chronic (8) Asthma Code(s): J45.909 - UNSPECIFIED ASTHMA, UNCOMPLICATED Status: Chronic (9) Cirrhosis of liver Code(s): K74.60 - UNSPECIFIED CIRRHOSIS OF LIVER Status: Chronic (10) Morbid obesity with BMI of 40.0-44.9, adult Code(s): E66.01 - MORBID (SEVERE) OBESITY DUE TO EXCESS CALORIES; Z68.41 - BODY MASS INDEX (BMI) 40.0-44.9, ADULT Status: Chronic (11) Portal hypertension Code(s): K76.6 - PORTAL HYPERTENSION Status: Chronic (12) Thrombocytopenia Code(s): D69.6 - THROMBOCYTOPENIA, UNSPECIFIED Status: Chronic - Plan cont current plan of care, continue antibiotics * will consult wound care team for skin care * will consult dr hartley as pt has dense cellulitis * medication reviewed as below * symptomatic treatment * continue vancomycin and rocephin * keep leg elevated * pt is from [facility], she may need longer antibiotics in hospital. Review of Systems - Review of Systems Constitutional: negative: Fever, Chills, Sweats, Weakness, Malaise, Other ENT: negative: Ear Pain, Ear Discharge, Nose Pain, Nose Discharge, Nose Congestion, Mouth Pain, Mouth Swelling, Throat Pain, Throat Swelling, Other Respiratory: negative: Cough, Dry, Shortness of Breath, Hemoptysis, SOB with Excertion, Pleuritic Pain, Sputum, Wheezing Cardiovascular: negative: Chest Pain, Palpitations, Orthopnea, Paroxysmal Noc. Dyspnea, Edema, Light Headedness, Other Gastrointestinal: negative: Nausea, Vomiting, Abdominal Pain, Diarrhea, Constipation, Melena, Hematochezia, Other Genitourinary: negative: Dysuria, Frequency, Incontinence, Hematuria, Retention , Other Musculoskeletal: Leg Pain. negative: Neck Pain, Shoulder Pain, Arm Pain, Back Pain, Hand Pain, Foot Pain, Other Skin: negative: Rash, Lesions, [place], Bruising, Other - Medications/Allergies Allergies/Adverse Reactions: Allergies Allergy/AdvReac Type Severity Reaction Status Date / Time No Known Allergies Allergy Verified 04/07/17 14:47 Medications: Current Medications Acetaminophen (Tylenol) 650 mg PO Q4H PRN PRN Reason: Headache/Fever or Pain Hydrocodone Bitart/Acetaminophen ([place] 5/325) 1 tab PO Q4H PRN PRN Reason: Moderate Pain (4-6) Last Admin: 04/10/17 08:12 Dose: 1 tab Al Hydroxide/Mg Hydroxide (Maalox) 30 ml PO Q6H PRN PRN Reason: Heartburn or Indigestion Albuterol/Ipratropium (Duoneb) 3 ml NEB [id number] PRN PRN Reason: SOB &/or Wheezing Artificial Tears (Tears Naturale) 0 drop EA EYE PRN PRN PRN Reason: Dry Eyes Furosemide (Lasix) 20 mg SLOW IVP 0600,1400 [facility] Last Admin: 04/10/17 05:12 Dose: 20 mg Guaifenesin (Robitussin Sf) 200 mg PO Q4H PRN PRN Reason: Cough Hydralazine HCl (Apresoline) 10 mg SLOW IVP Q4H PRN PRN Reason: Systolic BP > 180 Ceftriaxone Sodium 2 gm/ (Sodium Chloride) 100 mls @ 200 mls/hr IVPB 1000 [facility] Last Admin: 04/10/17 10:10 Dose: 100 mls Vancomycin HCl 1.25 gm/ Sodium (Chloride) 250 mls @ 166.667 mls/hr IVPB 1200, 2359 [facility] Ketorolac Tromethamine (Toradol) 15 mg IVP Q6H PRN PRN Reason: Pain Stop: 04/12/17 13:50 Loperamide HCl (Imodium) 2 mg PO PRN PRN PRN Reason: Diarrhea/Loose Stools Loratadine (Claritin) 10 mg PO DAILYPRN PRN PRN Reason: Sinus Symptoms Magnesium Hydroxide (Milk Of Magnesium) 30 ml PO DAILYPRN PRN PRN Reason: Constipation Magnesium Oxide (Magnesium Oxide) 400 mg PO DAILY [facility] Last Admin: 04/10/17 07:53 Dose: 400 mg Mineral Oil/White Petrolatum (Eucerin Cream) 0 gm TOP BIDPRN PRN PRN Reason: Dry Skin Miscellaneous Medication (Pharmacy To Dose) 1 each IVPB PRN PRN PRN Reason: Pharmacy to dose Miscellaneous Medication (Phos-Nak) 1 pkt PO 0800,1600,2359 [facility] Stop: 04/11/17 00:00 Last Admin: 04/10/17 08:16 Dose: 1 pkt Morphine Sulfate (Morphine Sulfate) 2 mg SLOW IVP Q4H PRN PRN Reason: Pain Nadolol (Corgard) 40 mg PO DAILY [facility] Last Admin: 04/10/17 07:53 Dose: 40 mg Ondansetron HCl (Zofran Odt) 4 mg PO Q6H PRN PRN Reason: Nausea/Vomiting Ondansetron HCl (Zofran) 4 mg IVP Q6H PRN PRN Reason: Nausea/Vomiting Pantoprazole Sodium (Protonix) 40 mg PO DAILY [facility] Last Admin: 04/10/17 07:53 Dose: 40 mg Phenol (Chloraseptic [place] 180 Ml Bot) 0 ml PO PRN PRN PRN Reason: Sore Throat Potassium Chloride (K-Dur) 20 meq PO BID-[facility] Last Admin: 04/10/17 07:53 Dose: 20 meq Saccharomyces Boulardii (Florastor) 250 mg PO DAILY [facility] Last Admin: 04/10/17 07:52 Dose: 250 mg Senna (Senokot) 2 tab PO HSPRN PRN PRN Reason: Constipation Sodium Chloride ([place] Nasal [place] 0.65%) 0 ml EA NARE QIDPRN PRN PRN Reason: Nasal Congestion Spironolactone (Aldactone) 25 mg PO QAM-WM [facility] Last Admin: 04/10/17 07:53 Dose: 25 mg
--- NOTE | 2017-04-10 17:59 | CON ---
DATE OF CONSULTATION: 04/10/2017 REASON FOR CONSULTATION: Cellulitis. HISTORY OF PRESENT ILLNESS: A 62-year-old with history of hepatitis C associated advanced liver dis ease, prior alcoholism, who has been admitted with cellulitis in right leg associated with venous in sufficiency, which developed and progressed over the past 2 weeks prior to admission. The patient i s currently at [facility] after being released from [facility]. Some fever associated with it, mostly low grade, some dyspnea. No headaches, visual symptoms, sore throat, odynophagia, dysphagia, no bleedi ng, no vomiting. Some cough. No sputum production. No abdominal pain. Never had ascites or the n eed for paracentesis. No genitourinary symptoms, no diarrhea. Some chronic knee pain, unchanged. PAST MEDICAL HISTORY: Hypertension; chronic hepatitis C, treated successfully about a year and a lay lf ago; portal hypertension; cirrhosis of liver, alcoholism in remission, asthma; venous insufficien cy, previously wearing a compression device, which was reportedly did not fit to her extremity. PAST SURGICAL HISTORY: Includes liver biopsy and tubal ligation. SOCIAL HISTORY: Former smoker, used heroin in the past, alcoholism history, had been incarcerated f or 14 years. Currently at [facility] for 3 months. FAMILY HISTORY: Hypertension. ALLERGIES: None. CURRENT MEDICATIONS: Tylenol, [place], Maalox, DuoNeb, ceftriaxone, furosemide, Toradol, Imodium, Cla ritin, Rocephin, ondansetron and vancomycin. PHYSICAL EXAMINATION: VITAL SIGNS: T-max normal, blood pressure 150/67, pulse 68, respirations 16, O2 sat 97%. SKIN: Shows the area of erythema with some blistering in the right leg, a little shallow ulceration in the left side. Peripheral IV access. No Correa catheter. No lymphadenopathy. HEENT: Ocular movements are conjugate. Sclerae are white. No icterus. Oral cavity is not remarka ble. NECK: Supple. LUNGS: With symmetric clear breath sounds. HEART: S1, S2, regular rate. No S3 or S4. ABDOMEN: Without evidence of ascites. No tenderness, no organomegaly or bladder distention. EXTREMITIES: Evidence of arthrosis in right and left knees. Pulses are 1+ in dorsalis pedis. She has a fairly bulky dressing on the right side. She is able to move the toes, but she has limited mo bility in lower extremities due to the lymphedema and the inflammatory process, right leg. NEUROLOGIC: Cognitive function appears to be intact. Upper extremity strength is preserved. LABORATORY DATA: White cell count 10.3, now 12.2, hemoglobin 12, platelets 137, 86% neutrophils, no w down to 58% neutrophils. Band neutrophils 6%. INR 1.2. Sodium 131, creatinine 0.74, AST 47, alb umin 2.7. CRP 13.97. Urinalysis fairly unremarkable. Vancomycin trough 21. The strep pyogenes, b lood culture 1 set out of 2 positive from 04/05/2017. The usual broad susceptibility profile, vascu lature ultrasound with no evidence of DVT. ASSESSMENT: 1. Advanced liver disease associated hepatitis C, which has been treated successfully according to the patient in the recent past and alcoholism, currently in remission. 2. Venous insufficiency with lymphedema and cellulitis in right leg secondary to group A streptococ cus. DISCUSSION: The patient will be transitioned to Rocephin alone eventually, oral Keflex and then swi tch to Pen VK at the end of 10 days in the outpatient setting. Continue Pen VK 250 mg twice daily f or 1 year. Compression device, either stockings or other type of compression device to manage lymph edema. We will check hepatitis C viral load again to make sure that she is still without hepatitis C viremia.
[2017-04-10] MEDS ORDERED: Vancomycin HCl 1.25 GM in Sodium Chloride 0.9% 250 ML 250 ML IVPB SCH (23:59)
[2017-04-11] MEDS: Furosemide 20 MG/2 ML VIAL SLOW IVP SCH ×2 (05:51→14:54)
[2017-04-11] MEDS: Spironolactone 25 MG TAB PO SCH (07:42)
[2017-04-11] MEDS: Nadolol 40 MG TAB PO SCH (07:42)
[2017-04-11] MEDS: Magnesium Oxide 400 MG TAB PO SCH (07:42)
[2017-04-11] MEDS: Potassium Chloride 20 MEQ TAB PO SCH ×2 (07:42→18:14)
[2017-04-11] MEDS: Saccharomyces boulardii 250 MG CAP PO SCH (07:42)
[2017-04-11] MEDS: HYDROcodone/Acetaminophen 5/325 mg Tablet PO PRN ×3 (09:22→22:24)
[2017-04-11] MEDS: cefTRIAXone\\ROCEPHIN 2 GM in Sodium Chloride 0.9% 100 ML IVPB SCH (09:24)
--- NOTE | 2017-04-11 09:50 | PDOC.PN ---
- Subjective Encounter Start Date: 04/11/17 Encounter Start Time: 09:48 - Objective Resuscitation Status: Resuscitation Status FULL:Full Resuscitation MAR Reviewed: Yes Vital Signs & Weight: Vital Signs (12 hours) Temp Pulse Resp BP BP Pulse Ox 04/11/17 08:00 98.2 F 69 20 135/75 97 04/11/17 04:00 97.7 F 72 18 138/82 94 L 04/11/17 00:00 97.7 F 70 18 139/85 97 I&O: 04/10/17 04/11/17 04/12/17 06:59 06:59 06:59 Intake Total 1770 1750 Balance 1770 1750 Result Diagrams: 04/10/17 04:27 04/10/17 04:27 Additional Labs: Microbiology 04/07/17 10:04 Venous blood - Right Arm Blood Culture - Preliminary NO GROWTH AT 48 HOURS 04/07/17 10:01 Venous blood - Left Arm Blood Culture - Preliminary NO GROWTH AT 48 HOURS Laboratory Tests 04/07/17 04/07/17 04/07/17 10:01 10:01 10:02 WBC 10.3 Plt Count 75 L Phosphorus 1.3 L Total Bilirubin 2.1 H AST 65 H ALT 33 Alkaline Phosphatase C-Reactive Protein 15.23 H Tumor Marker AFP Hepatitis A Ab Total Hep B Core Total Ab 04/08/17 04/08/17 04/08/17 03:56 03:56 03:56 WBC 8.9 Plt Count 72 L Phosphorus Total Bilirubin 1.7 H AST 47 H ALT 30 Alkaline Phosphatase 145 C-Reactive Protein Tumor Marker AFP Hepatitis A Ab Total Hep B Core Total Ab Reactive H 04/08/17 04/08/17 04/08/17 03:56 03:56 03:56 WBC Plt Count Phosphorus 2.0 L Total Bilirubin AST ALT Alkaline Phosphatase C-Reactive Protein Tumor Marker AFP 4.8 Hepatitis A Ab Total Positive A Hep B Core Total Ab 04/10/17 04/10/17 04:27 04:27 WBC 12.2 H Plt Count 137 Phosphorus 1.9 L Total Bilirubin AST ALT Alkaline Phosphatase C-Reactive Protein 13.97 H Tumor Marker AFP Hepatitis A Ab Total Hep B Core Total Ab Laboratory Tests 04/07/17 04/07/17 04/08/17 10:01 22:26 03:56 Lactic Acid 2.5 H 1.3 HCV RNA (PCR) log10 TNP HCV RNA Ultraquant HCV Not Detected Phys Exam - Physical Examination Constitutional: NAD sitting up in chair HEENT: PERRLA, moist MMs, sclera anicteric, oral pharynx no lesions Neck: no nodes, no JVD, supple, full ROM Respiratory: no wheezing, no rales, no rhonchi, clear to auscultation bilateral Cardiovascular: RRR, no significant murmur Gastrointestinal: soft, non-tender, positive bowel sounds distenede Musculoskeletal: pulses present, edema present (+3 pitting edema w oozing/ blistering) Neurological: non-focal, normal sensation, moves all 4 limbs Psychiatric: normal affect, A&O x 3 Skin: no rash Dx/Plan (1) Cellulitis of right leg Code(s): L03.115 - CELLULITIS OF RIGHT LOWER LIMB Status: Acute Comment: on IV ABx.ID following (2) Hyponatremia Code(s): E87.1 - HYPO-OSMOLALITY AND HYPONATREMIA Status: Acute Comment: due to fluid third spacing due to liver disease (3) Hypophosphatemia Code(s): E83.39 - OTHER DISORDERS OF PHOSPHORUS METABOLISM Status: Acute (4) Anxiety and depression Code(s): F41.8 - OTHER SPECIFIED ANXIETY DISORDERS Status: Chronic (5) Asthma Code(s): J45.909 - UNSPECIFIED ASTHMA, UNCOMPLICATED Status: Chronic (6) Cirrhosis of liver Code(s): K74.60 - UNSPECIFIED CIRRHOSIS OF LIVER Status: Chronic Comment: AFP WNL (7) Portal hypertension Code(s): K76.6 - PORTAL HYPERTENSION Status: Chronic Comment: on Nadolol, diuretics (8) Thrombocytopenia Code(s): D69.6 - THROMBOCYTOPENIA, UNSPECIFIED Status: Resolved (9) Lactic acidosis Code(s): E87.2 - ACIDOSIS Status: Resolved (10) Hep C w/o coma, chronic Code(s): B18.2 - CHRONIC VIRAL HEPATITIS C Status: Chronic Comment: HCV RNA undetectable - Plan continue antibiotics, PT/OT, perinatal social worker, out of bed/ambulate, DVT proph w/ SCDs check Abdominal US to check for ascites. -: add zaroxolyn as pt still has significant edema.onm IV lasix & aldactone -: LFt,platelets improving.OP f/u W GI. -: s/p Rx for hep C.RNA negative.AFP normal.chr cirrhosis -: add PT.pt will go to [facility] on DC * .cont ABx. follow final Cx results. * ID following. * am labs. * replace and recheck Phos.LFT etc. * Likley DC in next 24-48 hours,. Review of Systems - Review of Systems Constitutional: Weakness, Malaise. negative: Fever, Chills, Sweats, Other Eyes: negative: Pain, Vision Change, Conjunctivae Inflammation, Eyelid Inflammation, Redness, Other ENT: negative: Ear Pain, Ear Discharge, Nose Pain, Nose Discharge, Nose Congestion, Mouth Pain, Mouth Swelling, Throat Pain, Throat Swelling, Other Respiratory: negative: Cough, Dry, Shortness of Breath, Hemoptysis, SOB with Excertion, Pleuritic Pain, Sputum, Wheezing Cardiovascular: Edema. negative: Chest Pain, Palpitations, Orthopnea, Paroxysmal Noc. Dyspnea, Light Headedness, Other Gastrointestinal: Abdominal Pain. negative: Nausea, Vomiting, Diarrhea, Constipation, Melena, Hematochezia, Other Genitourinary: negative: Dysuria, Frequency, Incontinence, Hematuria, Retention , Other Musculoskeletal: negative: Neck Pain, Shoulder Pain, Arm Pain, Back Pain, Hand Pain, Leg Pain, Foot Pain, Other Neurological: negative: Weakness, Numbness, Incoordination, Change in Speech, Confusion, Seizures, Other - Medications/Allergies Allergies/Adverse Reactions: Allergies Allergy/AdvReac Type Severity Reaction Status Date / Time No Known Allergies Allergy Verified 04/07/17 14:47 Medications: Current Medications Acetaminophen (Tylenol) 650 mg PO Q4H PRN PRN Reason: Headache/Fever or Pain Hydrocodone Bitart/Acetaminophen ([place] 5/325) 1 tab PO Q4H PRN PRN Reason: Moderate Pain (4-6) Last Admin: 04/10/17 16:38 Dose: 1 tab Al Hydroxide/Mg Hydroxide (Maalox) 30 ml PO Q6H PRN PRN Reason: Heartburn or Indigestion Albuterol/Ipratropium (Duoneb) 3 ml NEB [id number] PRN PRN Reason: SOB &/or Wheezing Artificial Tears (Tears Naturale) 0 drop EA EYE PRN PRN PRN Reason: Dry Eyes Furosemide (Lasix) 20 mg SLOW IVP 0600,1400 [facility] Last Admin: 04/11/17 05:51 Dose: 20 mg Guaifenesin (Robitussin Sf) 200 mg PO Q4H PRN PRN Reason: Cough Hydralazine HCl (Apresoline) 10 mg SLOW IVP Q4H PRN PRN Reason: Systolic BP > 180 Ceftriaxone Sodium 2 gm/ (Sodium Chloride) 100 mls @ 200 mls/hr IVPB 1000 [facility] Last Admin: 04/10/17 10:10 Dose: 100 mls Potassium Phosphate 9 mmol/ (Sodium Chloride) 103 mls @ 25 mls/hr IVPB ONE [facility] Ketorolac Tromethamine (Toradol) 15 mg IVP Q6H PRN PRN Reason: Pain Stop: 04/12/17 13:50 Loperamide HCl (Imodium) 2 mg PO PRN PRN PRN Reason: Diarrhea/Loose Stools Loratadine (Claritin) 10 mg PO DAILYPRN PRN PRN Reason: Sinus Symptoms Magnesium Hydroxide (Milk Of Magnesium) 30 ml PO DAILYPRN PRN PRN Reason: Constipation Magnesium Oxide (Magnesium Oxide) 400 mg PO DAILY [facility] Last Admin: 04/11/17 07:42 Dose: 400 mg Mineral Oil/White Petrolatum (Eucerin Cream) 0 gm TOP BIDPRN PRN PRN Reason: Dry Skin Morphine Sulfate (Morphine Sulfate) 2 mg SLOW IVP Q4H PRN PRN Reason: Pain Nadolol (Corgard) 40 mg PO DAILY [facility] Last Admin: 04/11/17 07:42 Dose: 40 mg Ondansetron HCl (Zofran Odt) 4 mg PO Q6H PRN PRN Reason: Nausea/Vomiting Ondansetron HCl (Zofran) 4 mg IVP Q6H PRN PRN Reason: Nausea/Vomiting Pantoprazole Sodium (Protonix) 40 mg PO DAILY [facility] Last Admin: 04/11/17 07:42 Dose: 40 mg Phenol (Chloraseptic [place] 180 Ml Bot) 0 ml PO PRN PRN PRN Reason: Sore Throat Potassium Chloride (K-Dur) 20 meq PO BID-[facility] Last Admin: 04/11/17 07:42 Dose: 20 meq Saccharomyces Boulardii (Florastor) 250 mg PO DAILY [facility] Last Admin: 04/11/17 07:42 Dose: 250 mg Senna (Senokot) 2 tab PO HSPRN PRN PRN Reason: Constipation Sodium Chloride ([place] Nasal [place] 0.65%) 0 ml EA NARE QIDPRN PRN PRN Reason: Nasal Congestion Spironolactone (Aldactone) 25 mg PO QAM-[facility] Last Admin: 04/11/17 07:42 Dose: 25 mg
[2017-04-11] MEDS ORDERED: Potassium Phosphate 9 MMOL, Admixture Fee 1 EACH in Sodium Chloride 0.9% 100 ML IVPB SCH (10:00)
[2017-04-11 12:12] LABS: Hep C PCR-Quant HCV Not Detected IU/mL (.)
[2017-04-11] MEDS ORDERED: Metolazone 5 MG TAB PO SCH (13:30)
[2017-04-12 05:23] LABS: Anion Gap 13 mmol/L (10-20); BUN (Urea Nitrogen) 31 mg/dL (9.8-20.1); Calc. Creatinine Clearance 126 mL/min (70-130); Calcium 8.6 mg/dL (7.8-10.44); Carbon Dioxide 23 mmol/L (22-29); Chloride 99 mmol/L (98-107); Estimated GFR-MDRD 73; Magnesium 2.6 mg/dL (1.6-2.6); Phosphorus 3.1 mg/dL (2.3-4.7)
[2017-04-12 05:24] LABS: ALT (SGPT) 27 U/L (8-55); AST (SGOT) 45 U/L (5-34); Alkaline Phosphatase 166 U/L (40-150); Bilirubin, Direct 0.5 mg/dL (0.1-0.3); Bilirubin, Total 1.4 mg/dL (0.2-1.2); Protein, Total 6.9 g/dL (6.0-8.3)
[2017-04-12] MEDS: Furosemide 20 MG/2 ML VIAL SLOW IVP SCH ×3 (05:43→15:23)
[2017-04-12 05:52] LABS: Anisocytosis SLIGHT = 6-15 cells (100X) (0-5/hpf); Band 4 % (5-11); Hematocrit 39.6 % (36.0-47.0); Mean Platelet Volume 7.4 fL (7.4-10.4); Metamyelocyte 2 % (0-0); Myelocyte 2 % (0-0); Neutrophil 63 % (42-75); Polychromasia SLIGHT = 2-3 cells (100X) (0-2/hpf); Red Blood Cell (RBC) Count 4.47 mill/uL (4.20-5.40)
[2017-04-12] MEDS: Metolazone 2.5 MG TAB PO SCH (07:31)
[2017-04-12] MEDS: Potassium Chloride 20 MEQ TAB PO SCH ×2 (07:31→16:40)
[2017-04-12] MEDS: Nadolol 40 MG TAB PO SCH (07:32)
[2017-04-12] MEDS: Saccharomyces boulardii 250 MG CAP PO SCH (07:32)
[2017-04-12] MEDS: Magnesium Oxide 400 MG TAB PO SCH (07:32)
[2017-04-12] MEDS: Spironolactone 25 MG TAB PO SCH (07:32)
--- NOTE | 2017-04-12 08:21 | ULT ---
ULTRASOUND ABDOMEN: Date: 04/12/17 HISTORY: Abdominal pain, cirrhosis of liver, constipation. FINDINGS: The liver has a nodular appearance consistent with cirrhosis. No focal mass or intrahepatic ductal d ilatation is seen. The spleen is enlarged measuring 14.2 cm. There is sludge in the gallbladder with out gallstones, gallbladder wall thickening, or pericholecystic fluid. The common duct measures 3.0 mm in diameter. The visualized portions of the pancreas, aorta, and IVC are unremarkable. The kidney s appear normal. No free fluid is seen. IMPRESSION: 1. Cirrhosis of the liver. 2. Splenomegaly. 3. Gallbladder sludge. POS: H
--- NOTE | 2017-04-12 10:05 | PDOC.PN ---
- Subjective Encounter Start Date: 04/12/17 Encounter Start Time: 10:04 Subjective: continues to have drainage and pain in right leg w swelling -: no fever.no AP/N/V - Objective Resuscitation Status: Resuscitation Status FULL:Full Resuscitation MAR Reviewed: Yes Vital Signs & Weight: Vital Signs (12 hours) Temp Pulse Resp BP BP Pulse Ox 04/12/17 08:00 97.8 F 61 20 133/73 98 04/12/17 06:52 65 133/77 04/12/17 05:27 97.8 F 63 18 117/57 L 95 04/12/17 00:41 97.8 F 62 16 123/80 95 Weight Admit Weight 235 lb 14.304 oz Weight 235 lb 14.304 oz I&O: 04/11/17 04/12/17 04/13/17 06:59 06:59 06:59 Intake Total 1750 312 Balance 1750 312 Result Diagrams: 04/12/17 04:20 04/12/17 04:20 Additional Labs: Microbiology 04/07/17 10:04 Venous blood - Right Arm Blood Culture - Preliminary NO GROWTH AT 48 HOURS 04/07/17 10:01 Venous blood - Left Arm Blood Culture - Preliminary NO GROWTH AT 48 HOURS Laboratory Tests 04/07/17 04/07/17 04/07/17 10:01 10:01 22:26 WBC 10.3 Phosphorus Magnesium Total Bilirubin 2.1 H AST 65 H ALT 33 Alkaline Phosphatase 123 HCV RNA (PCR) log10 TNP HCV RNA Ultraquant HCV Not Detected 04/08/17 04/08/17 04/10/17 03:56 03:56 04:27 WBC 8.9 12.2 H Phosphorus Magnesium Total Bilirubin 1.7 H AST 47 H ALT 30 Alkaline Phosphatase 145 HCV RNA (PCR) log10 HCV RNA Ultraquant 04/12/17 04/12/17 04/12/17 04:20 04:20 04:20 WBC 14.0 H Phosphorus 3.1 Magnesium 2.6 Total Bilirubin 1.4 H AST 45 H ALT 27 Alkaline Phosphatase 166 H HCV RNA (PCR) log10 HCV RNA Ultraquant Phys Exam - Physical Examination Constitutional: NAD HEENT: PERRLA, moist MMs, sclera anicteric, oral pharynx no lesions Neck: no nodes, no JVD, supple, full ROM Respiratory: no wheezing, no rales, no rhonchi, clear to auscultation bilateral Cardiovascular: RRR, no significant murmur, no rub, gallop Gastrointestinal: soft, non-tender, no distention, positive bowel sounds Musculoskeletal: no edema, pulses present Neurological: non-focal, normal sensation, moves all 4 limbs Psychiatric: normal affect, A&O x 3 Skin: no rash Dx/Plan (1) Cellulitis of right leg Code(s): L03.115 - CELLULITIS OF RIGHT LOWER LIMB Status: Acute Comment: on IV ABx.ID following (2) Hyponatremia Code(s): E87.1 - HYPO-OSMOLALITY AND HYPONATREMIA Status: Acute Comment: due to fluid third spacing due to liver disease (3) Hypophosphatemia Code(s): E83.39 - OTHER DISORDERS OF PHOSPHORUS METABOLISM Status: Acute (4) Anxiety and depression Code(s): F41.8 - OTHER SPECIFIED ANXIETY DISORDERS Status: Chronic (5) Asthma Code(s): J45.909 - UNSPECIFIED ASTHMA, UNCOMPLICATED Status: Chronic (6) Cirrhosis of liver Code(s): K74.60 - UNSPECIFIED CIRRHOSIS OF LIVER Status: Chronic Comment: AFP WNL (7) Portal hypertension Code(s): K76.6 - PORTAL HYPERTENSION Status: Chronic Comment: on Nadolol, diuretics (8) Thrombocytopenia Code(s): D69.6 - THROMBOCYTOPENIA, UNSPECIFIED Status: Resolved (9) Lactic acidosis Code(s): E87.2 - ACIDOSIS Status: Resolved (10) Hep C w/o coma, chronic Code(s): B18.2 - CHRONIC VIRAL HEPATITIS C Status: Chronic Comment: HCV RNA undetectable - Plan continue antibiotics, PT/OT, social services director, respiratory therapy, incentive spirometry, out of bed/ambulate, DVT proph w/SCDs increase Lasix dose.cont zaroxolyn for naother day or two.cont ABx. -: folow Cx results.check am labs.monitor renal Fx/Na etc -: Robi PUENTE to [facility] in 24-48 hours if symptoms improve. -: cont nadolol,aldactone. -: no ascites on US.hemodynamically stable. * . Review of Systems - Review of Systems Constitutional: negative: Fever, Chills, Sweats, Weakness, Malaise, Other Respiratory: negative: Cough, Dry, Shortness of Breath, Hemoptysis, SOB with Excertion, Pleuritic Pain, Sputum, Wheezing Cardiovascular: Edema. negative: Chest Pain, Palpitations, Orthopnea, Paroxysmal Noc. Dyspnea, Light Headedness, Other Gastrointestinal: negative: Nausea, Vomiting, Abdominal Pain, Diarrhea, Constipation, Melena, Hematochezia, Other Genitourinary: negative: Dysuria, Frequency, Incontinence, Hematuria, Retention , Other Musculoskeletal: negative: Neck Pain, Shoulder Pain, Arm Pain, Back Pain, Hand Pain, Leg Pain, Foot Pain, Other Neurological: negative: Weakness, Numbness, Incoordination, Change in Speech, Confusion, Seizures, Other - Medications/Allergies Allergies/Adverse Reactions: Allergies Allergy/AdvReac Type Severity Reaction Status Date / Time No Known Allergies Allergy Verified 04/07/17 14:47 Medications: Current Medications Acetaminophen (Tylenol) 650 mg PO Q4H PRN PRN Reason: Headache/Fever or Pain Hydrocodone Bitart/Acetaminophen ([place] 5/325) 1 tab PO Q4H PRN PRN Reason: Moderate Pain (4-6) Last Admin: 04/11/17 22:24 Dose: 1 tab Al Hydroxide/Mg Hydroxide (Maalox) 30 ml PO Q6H PRN PRN Reason: Heartburn or Indigestion Albuterol/Ipratropium (Duoneb) 3 ml NEB [id number] PRN PRN Reason: SOB &/or Wheezing Artificial Tears (Tears Naturale) 0 drop EA EYE PRN PRN PRN Reason: Dry Eyes Furosemide (Lasix) 20 mg SLOW IVP 0600,1400 [facility] Last Admin: 04/12/17 05:43 Dose: 20 mg Guaifenesin (Robitussin Sf) 200 mg PO Q4H PRN PRN Reason: Cough Hydralazine HCl (Apresoline) 10 mg SLOW IVP Q4H PRN PRN Reason: Systolic BP > 180 Ceftriaxone Sodium 2 gm/ (Sodium Chloride) 100 mls @ 200 mls/hr IVPB 1000 [facility] Last Admin: 04/11/17 09:24 Dose: 100 mls Ketorolac Tromethamine (Toradol) 15 mg IVP Q6H PRN PRN Reason: Pain Stop: 04/12/17 13:50 Loperamide HCl (Imodium) 2 mg PO PRN PRN PRN Reason: Diarrhea/Loose Stools Loratadine (Claritin) 10 mg PO DAILYPRN PRN PRN Reason: Sinus Symptoms Magnesium Hydroxide (Milk Of Magnesium) 30 ml PO DAILYPRN PRN PRN Reason: Constipation Magnesium Oxide (Magnesium Oxide) 400 mg PO DAILY [facility] Last Admin: 04/12/17 07:32 Dose: 400 mg Metolazone (Zaroxolyn) 2.5 mg PO 0830 [facility] Last Admin: 04/12/17 07:31 Dose: 2.5 mg Mineral Oil/White Petrolatum (Eucerin Cream) 0 gm TOP BIDPRN PRN PRN Reason: Dry Skin Morphine Sulfate (Morphine Sulfate) 2 mg SLOW IVP Q4H PRN PRN Reason: Pain Nadolol (Corgard) 40 mg PO DAILY [facility] Last Admin: 04/12/17 07:32 Dose: 40 mg Ondansetron HCl (Zofran Odt) 4 mg PO Q6H PRN PRN Reason: Nausea/Vomiting Ondansetron HCl (Zofran) 4 mg IVP Q6H PRN PRN Reason: Nausea/Vomiting Pantoprazole Sodium (Protonix) 40 mg PO DAILY [facility] Last Admin: 04/12/17 07:32 Dose: 40 mg Phenol (Chloraseptic [place] 180 Ml Bot) 0 ml PO PRN PRN PRN Reason: Sore Throat Potassium Chloride (K-Dur) [facility] Last Admin: 04/12/17 07:31 Dose: 20 meq Saccharomyces Boulardii (Florastor) 250 mg PO DAILY [facility] Last Admin: 04/12/17 07:32 Dose: 250 mg Senna (Senokot) 2 tab PO HSPRN PRN PRN Reason: Constipation Sodium Chloride ([place] Nasal [place] 0.65%) 0 ml EA NARE QIDPRN PRN PRN Reason: Nasal Congestion Sodium Chloride (Flush - Normal Saline) 10 ml IVF Q12HR [facility] Last Admin: 04/12/17 07:33 Dose: 10 ml Sodium Chloride (Flush - Normal Saline) 10 ml IVF PRN PRN PRN Reason: Saline Flush Spironolactone (Aldactone) 25 mg PO QAM-[facility] Last Admin: 04/12/17 07:32 Dose: 25 mg
[2017-04-12] MEDS: cefTRIAXone\\ROCEPHIN 2 GM in Sodium Chloride 0.9% 100 ML IVPB SCH (10:36)
[2017-04-12] MEDS: HYDROcodone/Acetaminophen 5/325 mg Tablet PO PRN ×3 (11:44→23:29)
[2017-04-13 05:13] LABS: #Eosinphils 0.3 thou/uL (0.0-0.7); #Lymphocytes 1.2 thou/uL (1.20-3.40); #Neutrophils 7.1 thou/uL (1.40-6.50); %Basophils 0.2 % (0.0-1.0); %Eosinophils 3.5 % (0.0-10.0); %Lymphocytes 12.3 % (21.0-51.0); %Monocytes 9.9 % (0.0-10.0); Hematocrit 36.1 % (36.0-47.0); Mean Platelet Volume 7.5 fL (7.4-10.4); Red Blood Cell (RBC) Count 4.09 mill/uL (4.20-5.40); White Blood Cell (WBC) Count 9.6 thou/uL (4.8-10.8)
[2017-04-13] MEDS: Furosemide 20 MG/2 ML VIAL SLOW IVP SCH ×2 (05:24→17:13)
[2017-04-13 05:25] LABS: Anion Gap 10 mmol/L (10-20); BUN (Urea Nitrogen) 30 mg/dL (9.8-20.1); Calc. Creatinine Clearance 135 mL/min (70-130); Calcium 8.5 mg/dL (7.8-10.44); Carbon Dioxide 25 mmol/L (22-29); Chloride 98 mmol/L (98-107); Estimated GFR-MDRD 79
[2017-04-13] MEDS: Magnesium Oxide 400 MG TAB PO SCH (08:33)
[2017-04-13] MEDS: Spironolactone 25 MG TAB PO SCH (08:33)
[2017-04-13] MEDS: Nadolol 40 MG TAB PO SCH (08:34)
[2017-04-13] MEDS: Potassium Chloride 20 MEQ TAB PO SCH ×2 (08:34→17:12)
[2017-04-13] MEDS: Saccharomyces boulardii 250 MG CAP PO SCH (08:34)
[2017-04-13] MEDS: Metolazone 2.5 MG TAB PO SCH (08:35)
[2017-04-13] MEDS: cefTRIAXone\\ROCEPHIN 2 GM in Sodium Chloride 0.9% 100 ML IVPB SCH (11:28)
--- NOTE | 2017-04-13 14:30 | PDOC.PN ---
- Subjective Encounter Start Date: 04/13/17 Encounter Start Time: 08:00 -: old records requested/rev Patient seen and examined. No new complaints. No overnight events - Objective Resuscitation Status: Resuscitation Status FULL:Full Resuscitation MAR Reviewed: Yes Vital Signs & Weight: Vital Signs (12 hours) Temp Pulse Resp BP BP Pulse Ox 04/13/17 12:00 97.9 F 61 18 124/75 04/13/17 08:25 97.6 F 61 20 117/59 L 93 L 04/13/17 08:00 97.6 F 61 20 93 L 04/13/17 04:43 97.9 F 67 18 122/74 95 Weight Admit Weight 235 lb 14.304 oz Weight 235 lb 14.304 oz I&O: 04/12/17 04/13/17 04/14/17 06:59 06:59 06:59 Intake Total 312 500 Balance 312 500 Result Diagrams: 04/13/17 04:31 04/13/17 04:31 Phys Exam - Physical Examination Constitutional: NAD HEENT: PERRLA, moist MMs, sclera anicteric Neck: no JVD, supple Respiratory: no wheezing, no rales, no rhonchi Cardiovascular: RRR, no significant murmur, no rub Gastrointestinal: soft, non-tender, no distention, positive bowel sounds Musculoskeletal: pulses present, edema present rigth leg with dressing Neurological: non-focal, normal sensation, moves all 4 limbs Psychiatric: normal affect, A&O x 3 Skin: no rash, normal turgor Dx/Plan (1) Cellulitis of right leg Code(s): L03.115 - CELLULITIS OF RIGHT LOWER LIMB Status: Acute Comment: on IV ABx.ID following (2) Elevated brain natriuretic peptide (BNP) level Code(s): R79.89 - OTHER SPECIFIED ABNORMAL FINDINGS OF BLOOD CHEMISTRY Status : Acute (3) Hypokalemia Code(s): E87.6 - HYPOKALEMIA Status: Resolved (4) Hyponatremia Code(s): E87.1 - HYPO-OSMOLALITY AND HYPONATREMIA Status: Acute Comment: due to fluid third spacing due to liver disease (5) Hypophosphatemia Code(s): E83.39 - OTHER DISORDERS OF PHOSPHORUS METABOLISM Status: Acute (6) Lactic acidosis Code(s): E87.2 - ACIDOSIS Status: Resolved (7) Anxiety and depression Code(s): F41.8 - OTHER SPECIFIED ANXIETY DISORDERS Status: Chronic (8) Asthma Code(s): J45.909 - UNSPECIFIED ASTHMA, UNCOMPLICATED Status: Chronic (9) Cirrhosis of liver Code(s): K74.60 - UNSPECIFIED CIRRHOSIS OF LIVER Status: Chronic Comment: AFP WNL (10) Morbid obesity with BMI of 40.0-44.9, adult Code(s): E66.01 - MORBID (SEVERE) OBESITY DUE TO EXCESS CALORIES; Z68.41 - BODY MASS INDEX (BMI) 40.0-44.9, ADULT Status: Chronic (11) Portal hypertension Code(s): K76.6 - PORTAL HYPERTENSION Status: Chronic Comment: on Nadolol, diuretics (12) Thrombocytopenia Code(s): D69.6 - THROMBOCYTOPENIA, UNSPECIFIED Status: Resolved - Plan cont current plan of care, continue antibiotics * medication reviewed as below * symptomatic treatment * will arrange wound care * ID recommendation noted * continue rocephin and then keflex and PCN VK for prophylaxis. Review of Systems - Review of Systems ENT: negative: Ear Pain, Ear Discharge, Nose Pain, Nose Discharge, Nose Congestion, Mouth Pain, Mouth Swelling, Throat Pain, Throat Swelling, Other Respiratory: negative: Cough, Dry, Shortness of Breath, Hemoptysis, SOB with Excertion, Pleuritic Pain, Sputum, Wheezing Cardiovascular: negative: Chest Pain, Palpitations, Orthopnea, Paroxysmal Noc. Dyspnea, Edema, Light Headedness, Other Gastrointestinal: negative: Nausea, Vomiting, Abdominal Pain, Diarrhea, Constipation, Melena, Hematochezia, Other Genitourinary: negative: Dysuria, Frequency, Incontinence, Hematuria, Retention , Other Musculoskeletal: negative: Neck Pain, Shoulder Pain, Arm Pain, Back Pain, Hand Pain, Leg Pain, Foot Pain, Other - Medications/Allergies Allergies/Adverse Reactions: Allergies Allergy/AdvReac Type Severity Reaction Status Date / Time No Known Allergies Allergy Verified 04/07/17 14:47 Medications: Current Medications Acetaminophen (Tylenol) 650 mg PO Q4H PRN PRN Reason: Headache/Fever or Pain Hydrocodone Bitart/Acetaminophen ([place] 5/325) 1 tab PO Q4H PRN PRN Reason: Moderate Pain (4-6) Last Admin: 04/12/17 23:29 Dose: 1 tab Al Hydroxide/Mg Hydroxide (Maalox) 30 ml PO Q6H PRN PRN Reason: Heartburn or Indigestion Albuterol/Ipratropium (Duoneb) 3 ml NEB Q2IR-DY PRN PRN Reason: SOB &/or Wheezing Artificial Tears (Tears Naturale) 0 drop EA EYE PRN PRN PRN Reason: Dry Eyes Furosemide (Lasix) 40 mg SLOW IVP 0600,1400 [facility] Last Admin: 04/13/17 05:24 Dose: 40 mg Guaifenesin (Robitussin Sf) 200 mg PO Q4H PRN PRN Reason: Cough Hydralazine HCl (Apresoline) 10 mg SLOW IVP Q4H PRN PRN Reason: Systolic BP > 180 Ceftriaxone Sodium 2 gm/ (Sodium Chloride) 100 mls @ 200 mls/hr IVPB 1000 [facility] Last Admin: 04/13/17 11:28 Dose: 100 mls Loperamide HCl (Imodium) 2 mg PO PRN PRN PRN Reason: Diarrhea/Loose Stools Loratadine (Claritin) 10 mg PO DAILYPRN PRN PRN Reason: Sinus Symptoms Magnesium Hydroxide (Milk Of Magnesium) 30 ml PO DAILYPRN PRN PRN Reason: Constipation Magnesium Oxide (Magnesium Oxide) 400 mg PO DAILY [facility] Last Admin: 04/13/17 08:33 Dose: 400 mg Metolazone (Zaroxolyn) 2.5 mg PO 0830 [facility] Last Admin: 04/13/17 08:35 Dose: 2.5 mg Mineral Oil/White Petrolatum (Eucerin Cream) 0 gm TOP BIDPRN PRN PRN Reason: Dry Skin Morphine Sulfate (Morphine Sulfate) 2 mg SLOW IVP Q4H PRN PRN Reason: Pain Nadolol (Corgard) 40 mg PO DAILY [facility] Last Admin: 04/13/17 08:34 Dose: 40 mg Ondansetron HCl (Zofran Odt) 4 mg PO Q6H PRN PRN Reason: Nausea/Vomiting Ondansetron HCl (Zofran) 4 mg IVP Q6H PRN PRN Reason: Nausea/Vomiting Pantoprazole Sodium (Protonix) 40 mg PO DAILY [facility] Last Admin: 04/13/17 08:33 Dose: 40 mg Phenol (Chloraseptic [place] 180 Ml Bot) 0 ml PO PRN PRN PRN Reason: Sore Throat Potassium Chloride (K-Dur) 20 meq PO BID-[facility] Last Admin: 04/13/17 08:34 Dose: 20 meq Saccharomyces Boulardii (Florastor) 250 mg PO DAILY [facility] Last Admin: 04/13/17 08:34 Dose: 250 mg Senna (Senokot) 2 tab PO HSPRN PRN PRN Reason: Constipation Sodium Chloride ([place] Nasal [place] 0.65%) 0 ml EA NARE QIDPRN PRN PRN Reason: Nasal Congestion Sodium Chloride (Flush - Normal Saline) 10 ml IVF Q12HR [facility] Last Admin: 04/13/17 08:35 Dose: 10 ml Sodium Chloride (Flush - Normal Saline) 10 ml IVF PRN PRN PRN Reason: Saline Flush Spironolactone (Aldactone) 25 mg PO QAM-[facility] Last Admin: 04/13/17 08:33 Dose: 25 mg
[2017-04-13] MEDS: HYDROcodone/Acetaminophen 5/325 mg Tablet PO PRN (17:19)
[2017-04-14] MEDS: Furosemide 20 MG/2 ML VIAL SLOW IVP SCH ×2 (05:29→17:34)
[2017-04-14] MEDS: HYDROcodone/Acetaminophen 5/325 mg Tablet PO PRN (05:38)
[2017-04-14] MEDS: Magnesium Oxide 400 MG TAB PO SCH (09:09)
[2017-04-14] MEDS: Nadolol 40 MG TAB PO SCH (09:09)
[2017-04-14] MEDS: Saccharomyces boulardii 250 MG CAP PO SCH (09:09)
[2017-04-14] MEDS: Spironolactone 25 MG TAB PO SCH (09:09)
[2017-04-14] MEDS: Metolazone 2.5 MG TAB PO SCH (09:10)
[2017-04-14] MEDS: Potassium Chloride 20 MEQ TAB PO SCH ×2 (09:10→17:34)
[2017-04-14] MEDS: cefTRIAXone\\ROCEPHIN 2 GM in Sodium Chloride 0.9% 100 ML IVPB SCH (09:11)
--- NOTE | 2017-04-14 11:41 | DIS ---
DATE OF ADMISSION: 04/07/2017 DATE OF DISCHARGE: 04/14/2017 PRIMARY CARE PHYSICIAN: [facility] call admission. DISCHARGE DISPOSITION: [facility] with outpatient wound care. PRIMARY DISCHARGE DIAGNOSES: 1. Cellulitis of right lower extremity. 2. Elevated BNP due to fluid overload status. 3. Hyponatremia due to cirrhosis of liver. 4. Hypophosphatemia. 5. Thrombocytopenia. 6. Lactic acidosis. 7. Hypokalemia. SECONDARY DISCHARGE DIAGNOSES: Asthma, anxiety and depression, cirrhosis of liver, morbid obesity, hepatitis C, portal hypertension. PRIMARY PROCEDURE/OPERATION: None. RADIOLOGICAL INVESTIGATION: Ultrasound negative for any DVT. Abdominal ultrasound showed cirrhosis of liver with portal hypertension. SIGNIFICANT LABORATORY DATA: WBC 9.6, hemoglobin 11.8, platelets 164. INR 1.2, sodium 129, creatin ine 0.75, calcium 8.5, AST 45, ALT 27, alkaline phosphatase 166, albumin 2.7. Alphafetoprotein leve l 4.8. CRP 13.9. Urinalysis normal. Hepatitis A total antibody positive, hepatitis B core antibod y nonreactive, hepatitis C negative. Blood culture negative. DISCHARGE MEDICATIONS: Keflex 500 mg p.o. t.i.d. for 15 days and after that the patient will start penicillin VK prophylactic therapy, Lasix 40 mg p.o. b.i.d., magnesium oxide 400 mg p.o. daily, Zaro xolyn 2.5 mg p.o. daily for 1 month, Corgard 40 mg p.o. daily, omeprazole 20 mg p.o. daily, potassiu m chloride 20 mEq p.o. b.i.d., Florastor 250 mg p.o. daily, Aldactone 100 mg p.o. b.i.d. CONTRAINDICATIONS: None. CODE STATUS: FULL CODE. INPATIENT CONSULTANTS: Dr. Kris Partida was consulted for cirrhosis and he recommended outpatient evaluation with endoscopy. Dr. Conroy was consulted for dense cellulitis. TEST RESULTS PENDING ON DISCHARGE: None. ALLERGIES: No known drug allergy. DISCHARGE PLAN: Post hospital, patient will follow up with Dr. Conroy outpatient wound care and Dr. Partida for endoscopic evaluation. TEST RESULTS PENDING ON DISCHARGE: None. ALLERGIES: No known drug allergy. DISCHARGE PLAN: Post hospital, the patient will follow with above-mentioned consultants. HOSPITAL COURSE: A 62-year-old female who lives at [facility]. She has a long history of liver cirrhos is with portal hypertension. She was treated for hepatitis C in the past. This time she came to em ergency room for right lower extremity erythema, swelling, and tenderness. Her clinical presentatio n was consistent with cellulitis. She had negative ultrasound for DVT. She was admitted to medical floor. We treated her with Rocephin and vancomycin. As this patient lay s cirrhosis of liver and that is why we consulted Dr. Partida and he recommended outpatient endoscopic evaluation. This patient was started weeping serous fluid from both lower extremities and that is why we started IV Lasix and Zaroxolyn for diuresis and with that patient had significant improvement. We also con sulted Wound Care for wound management. At this point, the patient is medically stable. We consulted Dr. Conroy and Dr. Conroy recommended to change to Keflex upon discharge. Patient will have prophylactic penicillin VK after Keflex therapy over. With the help of field case manager, we arranged outpatient wound care. Patient is advised to keep hersel f lower extremity elevated. Fluid restriction discussed with the patient. Dietary education given. PHYSICAL EXAMINATION: GENERAL APPEARANCE: Patient is seen and examined at bedside today. VITAL SIGNS: Currently, temperature 98.1, pulse 59, respiratory rate 20, saturation 97%, blood pres sure 118/76, weight 235 pounds. GENERAL: The patient is currently alert, awake, no acute distress. HEAD: Normocephalic, atraumatic. LUNGS: Clear. CARDIAC: S1 and S2 regular without any significant murmur. ABDOMEN: Soft and benign. EXTREMITIES: Bilateral lower extremity edema noted. Cellulitis significantly improving. NEUROLOGIC: Nonfocal examination. All new medication prescriptions given to her. Total time spent on discharge day more than 30 minutes.
[2017-04-14 13:16] VITALS: BP 118/75; TEMP 98
--- NOTE | 2017-04-17 08:07 | PQF ---
HOPE DRUMMOND SALIM NOORJIBHAI MD [id number] CLINICAL DOCUMENTATION CLARIFICATION FORM: POST DISCHARGE Addendum to original discharge summary date: ____ Late entry note date: __ HOPE DRUMMOND [id number] CASANDRA WILLINGHAM MD PLEASE DOCUMENT YOUR RESPONSE BELOW PLEASE FAX RESPONSE BACK TO [phone] YOUR INPUT IS NEEDED TO CORRECTLY CODE A DIAGNOSIS FOR YOUR PATIENT. DATE: 04/17/2017 ATTN: DR. PEÑA Please exercise your independent, professional judgment in responding to the clarification form. Clinical indicators are provided on the bottom of this form for your review Please check appropriate box(s) to clarify if the following diagnosis has been ruled in our ruled out: ____SEPSIS (CDI/Coding list diagnosis here) [ x ] Ruled in diagnosis [ ] Continue to treat [ x] Resolved [ ] Ruled out diagnosis [ ] Cannot rule out diagnosis [ ] Other diagnosis [ ] Unable to determine In addition, please specify: Present on Admission (POA): [ x ] Yes [ ] No [ ] Unable to determine For continuity of documentation, please document condition throughout progress notes and discharge summary. Thank You. CLINICAL INDICATORS - SIGNS / SYMPTOMS / LABS H&P - ASSOCIATED SEPSIS LACTIC ACIDOSIS FEVER 100.6 RISK FACTORS CELLULITIS - RIGHT LEG CIRRHOSIS HEPATITIS C TREATMENTS ROCEPHIN, VANCOMYCIN (This form is maintained as a part of the permanent medical record) 2014 [employer]. All Rights Reserved Rufina Holbrook, CCS, FOSTER CARE THERAPIST-H [email or web address] [phone] ERIBERTO
== END 2017-04-14 17:27 | disposition home or self-care (01) | DRG 872 ==
LOC: ERS 08:29 → T4-A 13:30
PROVIDERS: ADMIT Internal Medicine; ATTEND Internal Medicine
DX: A41.9 Sepsis, unspecified organism (principal); E87.2 Acidosis; K76.6 Portal hypertension; D69.6 Thrombocytopenia, unspecified; E87.1 Hypo-osmolality and hyponatremia; L03.115 Cellulitis of right lower limb; Z68.41 Body mass index [BMI] 40.0-44.9, adult; E87.6 Hypokalemia; Z23 Encounter for immunization; E66.01 Morbid (severe) obesity due to excess calories; I10 Essential (primary) hypertension; F41.9 Anxiety disorder, unspecified; F32.9 Major depressive disorder, single episode, unspecified; J45.909 Unspecified asthma, uncomplicated; M54.5 Low back pain; F10.21 Alcohol dependence, in remission; E83.39 Other disorders of phosphorus metabolism; Z87.891 Personal history of nicotine dependence; F19.11 Other psychoactive substance abuse, in remission; I87.2 Venous insufficiency (chronic) (peripheral); B95.0 Streptococcus, group A, as the cause of diseases classified elsewhere; K70.30 Alcoholic cirrhosis of liver without ascites; B18.2 Chronic viral hepatitis C
CPT/HCPCS: 36415; 76700; 80048; 80053; 80076; 80202; 81001; 82105; 83605; 83735; 83880; 84100; 85025; 85610; 86140; 86704; 86706; 86709; 87040; 87340; 87522; 90471; 90682; 96365; 96366; 96367; 96375; A4216; G0008; J0696; J1940; J3370; J7050; Q2036

== ENCOUNTER 2017-04-18 09:37 | Outpatient (CLI) | payer SELFPAY ==
--- NOTE | 2017-04-18 12:16 | HP ---
DATE OF SERVICE: 04/18/2017 HISTORY OF PRESENT ILLNESS: Ms. Juliane Mora is a 62-year-old, who presents to the Wound Center for evaluation of an ulceration of the right medial lower leg. The patient also has edema of the right and left lower extremities, which she states has been present for approximately 2 years. The patien t was discharged from [facility] on 04/14/2017, after admission for celluliti s of the right lower extremity. During the patient's hospital stay, Ms. Mora was seen in consulta tion by Dr. Corky Conroy of Infectious Diseases. The patient was placed on Pen-VK 250 mg p.o. b.i. d. for [address] Conroy. Also, at the time of discharge, Ms. Mora was placed on Keflex 500 mg p.o. t.i.d. x15 days. PAST MEDICAL HISTORY: 1. Hypertension. 2. Obstructive sleep apnea. 3. Asthma. 4. Cirrhosis/portal hypertension. 5. History of chronic hepatitis C. PAST SURGICAL HISTORY: 1. Liver biopsy. 2. Tubal ligation. MEDICATIONS: 1. Antihypertensive. 2. Metoprolol. 3. Lasix. 4. Spironolactone. 5. Potassium. 6. Tylenol. ALLERGIES: No known diagnosed allergies. SOCIAL HISTORY: Social history is significant for tobacco use of 2 packs of cigarettes per day on a n intermittent basis for approximately 20 years. The patient states that she stopped smoking in 4. The patient admits to the heavy consumption of alcohol in the past. She states that she stopped consuming alcohol in 2003. FAMILY HISTORY: Family history is significant for diabetes mellitus. The patient states that her m other was diagnosed with diabetes mellitus. PHYSICAL EXAMINATION: VITAL SIGNS: Temperature 97.7, pulse 65, respirations 18, blood pressure 139/63. GENERAL: A 62-year-old female sitting on table in examination room in no acute distress. HEENT: Normocephalic, atraumatic. NECK: No nuchal rigidity. CHEST: Clear to auscultation. CARDIAC: Regular rate and rhythm. ABDOMEN: Soft. EXTREMITIES: Edema of the right and left lower extremities is present. A wound of the right medial lower leg is present, which measures approximately 4.0 x 5.0 cm. Copious serous drainage is associ ated with the wound. Granulation tissue is present within the wound margins. Erythema consistent w ith resolving cellulitis is present over the right foot and lower leg. A dorsalis pedis pulse is pa lpable on the right and on the left. No maceration of the skin of the right or left lower leg is no ember on today's exam. ASSESSMENT AND PLAN: 1. Right and left lower extremity edema. As described above, the patient also has an ulceration of the right medial lower leg. Adaptic, ABDs, Webril, and the [employer] Coban two-layer compression system w ill be applied to the ulceration of the right medial lower leg today. I will see Ms. Mora again i n one week. The patient has been reminded to continue Keflex as previously prescribed. The patient agrees to return to the Wound Center 1 week from today. 2. Hypertension. 3. Obstructive sleep apnea. 4. Asthma. 5. Cirrhosis/portal hypertension. 6. History of chronic hepatitis C.
[2017-04-18] MEDS ORDERED: Sodium Chloride 0.9% 15 ML NEB ONE (17:05)
== END 2017-04-18 09:38 | disposition home or self-care (01) ==
LOC: WCC 09:37
PROVIDERS: ATTEND Family Medicine
DX: R60.1 Generalized edema (principal); I10 Essential (primary) hypertension; G47.33 Obstructive sleep apnea (adult) (pediatric); J45.909 Unspecified asthma, uncomplicated; K74.60 Unspecified cirrhosis of liver; K76.6 Portal hypertension
CPT/HCPCS: A4218

== ENCOUNTER 2017-04-29 11:20 | Outpatient (CLI) | payer SELFPAY ==
[~2017-04-29 11:20] MED LIST: Sodium Chloride 0.9% 15 ML NEB ONE
== END 2017-04-29 11:21 | disposition home or self-care (01) ==
LOC: WCC 11:20
PROVIDERS: ATTEND Family Medicine
DX: I87.313 Chronic venous hypertension (idiopathic) with ulcer of bilateral lower extremity (principal); L97.929 Non-pressure chronic ulcer of unspecified part of left lower leg with unspecified severity; L97.919 Non-pressure chronic ulcer of unspecified part of right lower leg with unspecified severity
CPT/HCPCS: 29581; A4218

== ENCOUNTER 2017-05-02 11:17 | Outpatient (CLI) | payer SELFPAY ==
[2017-05-02] MEDS ORDERED: Sodium Chloride 0.9% 15 ML NEB ONE (22:49)
--- NOTE | 2017-05-03 09:31 | PRG ---
DATE OF SERVICE: 05/02/2017 HISTORY: Ms. Juliane Mora is a very pleasant 62-year-old, who presents to the Wound Center for evalu ation of an ulceration of the right medial lower leg. The patient also has edema of the right and l eft lower extremities, which she previously stated had been present for approximately 2 years. The patient was discharged from [facility] on 04/14/2017 after admission for cell ulitis of the right lower extremity. During the patient's hospital stay, Ms. Mora was seen in [facility] by Dr. Corky Conroy of Infectious Diseases. The patient was placed on Pen VK 250 mg p.o. b.i.d. for [address] Conroy. Also at the time of discharge, Ms. Mora was placed on Keflex 500 mg p.o. t.i.d. x15 days. After being seen in the Wound Center, Adaptic, ABDs, Webril, and the 3M C oban 2-layer compression system were applied to the ulceration of the right medial lower leg. At th e time of the patient's last visit, Webril and a 3M Coban 2-layer compression system were applied to the right and left feet and lower legs. Today, Ms. Mora reports persistent erythema of the right lower extremity despite completing the course of Keflex as previously prescribed. She also reports discomfort of her right lower extremity. PHYSICAL EXAMINATION: VITAL SIGNS: Temperature 97.5, pulse 81, respirations 18, blood pressure 166/74. EXTREMITIES: Erythema of the right foot and lower leg is present, which has increased in severity s lillian the patient's last visit. The wound of the right medial lower leg has healed completely and re galindo healed. A dorsalis pedis pulse is palpable on the right and on the left. No maceration of th e skin of the right or left lower leg is noted on today's exam. ASSESSMENT AND PLAN: 1. Right lower extremity cellulitis. As stated above, the ulceration of the right medial lower leg has healed completely and remains healed. Webril and the 3M Coban two-layer compression system darren l be applied to the left foot and lower leg today. Kerlix followed by an Holger bandage will be applie d to the right foot and lower leg. I have asked the patient to report to the Emergency Department f or evaluation for admission for right lower extremity cellulitis. I have explained to the patient t hat she has right lower extremity cellulitis despite treatment with p.o. antibiotics. The patient u nderstands and is in agreement with the preceding treatment plan. 2. Hypertension. 3. Obstructive sleep apnea. 4. Asthma. 5. Cirrhosis/portal hypertension. 6. History of chronic hepatitis C.
== END 2017-05-02 11:18 | disposition home or self-care (01) ==
LOC: WCC 11:17
PROVIDERS: ATTEND Family Medicine
DX: L03.115 Cellulitis of right lower limb (principal); I10 Essential (primary) hypertension; G47.33 Obstructive sleep apnea (adult) (pediatric); J45.909 Unspecified asthma, uncomplicated; Z86.19 Personal history of other infectious and parasitic diseases
CPT/HCPCS: 29581; A4218

== ENCOUNTER 2017-05-02 13:54 | Inpatient (IN) | payer SELFPAY ==
--- NOTE | 2017-05-02 16:06 | ULT ---
ULTRASOUND WITH DOPPLER DUPLEX VENOUS LOWER EXTREMITY RIGHT CPT: 08974 ICD-10-PCS: B54D HISTORY: Edema and pain. TECHNIQUE: Color flow Doppler, spectral waveform analysis of pulsed Doppler, and stovall-scale imaging with compre ssion and augmentation, were used to evaluate the bilateral common femoral, femoral, popliteal, post erior tibial, and superficial femoral, veins; and the proximal portions of the profunda femoral and greater saphenous, veins. FINDINGS: Appropriate compressibility and flow within the imaged deep vein system of the right lower extremity . IMPRESSION: No deep vein thrombosis. POS: [facility]
[2017-05-02 16:23] LABS: #Basophils 0.1 thou/uL (0.0-0.2); #Eosinphils 0.3 thou/uL (0.0-0.7); #Lymphocytes 0.8 thou/uL (1.20-3.40); #Monocytes 0.6 thou/uL (0.11-0.59); #Neutrophils 2.5 thou/uL (1.40-6.50); %Basophils 1.2 % (0.0-1.0); %Eosinophils 6.2 % (0.0-10.0); %Lymphocytes 19.2 % (21.0-51.0); %Monocytes 14.4 % (0.0-10.0); Hematocrit 35.8 % (36.0-47.0); Mean Platelet Volume 8.7 fL (7.4-10.4); Red Blood Cell (RBC) Count 3.93 mill/uL (4.20-5.40); White Blood Cell (WBC) Count 4.3 thou/uL (4.8-10.8)
[2017-05-02] MEDS ORDERED: Ketorolac Tromethamine 30 MG/ML VIAL ONE (16:23)
[2017-05-02] MEDS ORDERED: Ondansetron HCl/PF 4 MG/2 ML Vial ONE (16:23)
[2017-05-02 16:38] LABS: Anion Gap 14 mmol/L (10-20); BUN (Urea Nitrogen) 14 mg/dL (9.8-20.1); Calc. Creatinine Clearance 0 mL/min (70-130); Calcium 8.6 mg/dL (7.8-10.44); Carbon Dioxide 28 mmol/L (22-29); Chloride 99 mmol/L (98-107); Estimated GFR-MDRD 72
[2017-05-02] MEDS ORDERED: Ondansetron ODT 4 MG TAB PO PRN (19:01)
[2017-05-02] MEDS ORDERED: Sodium Chloride 0.9% 1,000 ML IV SCH ×2 (19:15→19:30)
[2017-05-02 19:29] LABS: PTT 32.8 SEC (22.9-36.1); Prothrombin Time 14.9 SEC (12.0-14.7)
[2017-05-02] MEDS ORDERED: Ondansetron HCl/PF 4 MG/2 ML Vial IVP PRN (19:29)
[2017-05-02] MEDS ORDERED: Ondansetron ODT 4 MG TAB SL PRN (19:29)
[2017-05-02] MEDS ORDERED: Acetaminophen 325 MG TAB PO PRN (19:29)
[2017-05-02] MEDS ORDERED: Potassium Chloride 20 MEQ TAB PO SCH (19:45)
[2017-05-02 20:51] LABS: ALT (SGPT) 13 U/L (8-55); AST (SGOT) 36 U/L (5-34); Alkaline Phosphatase 205 U/L (40-150); Bilirubin, Direct 0.5 mg/dL (0.1-0.3); Iron 40 ug/dL (50-170); Protein, Total 6.8 g/dL (6.0-8.3)
[2017-05-02] MEDS ORDERED: Ibuprofen 600 MG TAB PO PRN (21:07)
[2017-05-02] MEDS: traMADol HCl 50 MG TAB PO PRN (23:32)
[2017-05-02] MEDS: Piperacillin/Tazobactam 3.375 GM, Admixture Fee 1 EACH in Sodium Chloride 0.9% 100 ML IVPB SCH (23:33)
[2017-05-03 00:55] VITALS: BMI 41.3
[2017-05-03 04:53] LABS: IRF 0.325 Ratio (0.163-0.362); Reticulocyte Count 2.5 % (0.5-1.5)
[2017-05-03 04:56] LABS: #Eosinphils 0.3 thou/uL (0.0-0.7); #Monocytes 0.6 thou/uL (0.11-0.59); %Basophils 1.1 % (0.0-1.0); %Eosinophils 7.3 % (0.0-10.0); %Lymphocytes 26.5 % (21.0-51.0); %Monocytes 14.3 % (0.0-10.0); Hematocrit 32.2 % (36.0-47.0); Mean Platelet Volume 7.5 fL (7.4-10.4); Red Blood Cell (RBC) Count 3.52 mill/uL (4.20-5.40); White Blood Cell (WBC) Count 3.8 thou/uL (4.8-10.8)
[2017-05-03 05:15] LABS: ALT (SGPT) 12 U/L (8-55); AST (SGOT) 27 U/L (5-34); Alkaline Phosphatase 153 U/L (40-150); Anion Gap 12 mmol/L (10-20); BUN (Urea Nitrogen) 18 mg/dL (9.8-20.1); Bilirubin, Total 1.3 mg/dL (0.2-1.2); Calc. Creatinine Clearance 135 mL/min (70-130); Calcium 8.1 mg/dL (7.8-10.44); Carbon Dioxide 25 mmol/L (22-29); Chloride 102 mmol/L (98-107); Estimated GFR-MDRD 80; Globulin 3.9 g/dL (2.4-3.5); Protein, Total 6.4 g/dL (6.0-8.3)
[2017-05-03] MEDS: Vancomycin HCl 1.5 GM in Sodium Chloride 0.9% 250 ML 300 ML IVPB SCH ×2 (05:57→18:21)
[2017-05-03] MEDS: Piperacillin/Tazobactam 3.375 GM, Admixture Fee 1 EACH in Sodium Chloride 0.9% 100 ML IVPB SCH (05:57)
--- NOTE | 2017-05-03 06:23 | HP ---
DATE OF ADMISSION: 05/02/2017 CHIEF COMPLAINT: Leg pain. HISTORY OF PRESENT ILLNESS: This is a 62-year-old female with past history of cirrhosis, who had a recent hospitalization for lower extremity cellulitis. She was discharged home on Keflex and was planned to be changed to penicillin VK suppression for Strep pyogenes coverage. She ran out of her medications including her cirrhosis medications and subsequently had worsening edema with increasing redness and pain of her right lower extremity for which she has seen in Wound Care today for and they recommended she come to the ER. In the ER, she was diagnosed with a cellulitis and subsequently admitted to our service. Currently, she is complaining of marked severe right lower extremity pain that is worse with palpation or movement, better with rest and elevation with no associated fevers or chills at this time and she says she does not have any discharge from the leg like she was previously. Other than that, her only other complaint is that she has about a 5-month history of lower back pain that is in the midline to the right side. It is achy, does not radiate. It is worse with any prominent exertion, better with rest. No associated bowel or bladder incontinence, fevers or night awakenings. REVIEW OF SYSTEMS: All other systems reviewed and are negative. PAST MEDICAL HISTORY: Significant for a history of cellulitis, hepatitis C which was reportedly cleared, history of alcohol abuse, cirrhosis with essential hypertension, morbid obesity, chronic back pain, sleep apnea, asthma. PAST SURGICAL HISTORY: Positive for tubal ligation and a liver biopsy. FAMILY HISTORY: Otherwise noncontributory. SOCIAL HISTORY: She has a history of alcohol abuse, history of tobacco abuse, history of IV drug abuse, none of which have been present for the last 14 years. She [facility] out of [facility]. ALLERGIES: No known drug allergies. MEDICATIONS: Metoprolol, Lasix, Aldactone, potassium. PHYSICAL EXAMINATION: VITAL SIGNS: Temperature 98.6, respirations 18, pulse 76, blood pressure 136/ 58. GENERAL: She is in no acute distress, resting comfortably, watching TV. HEENT: Eyes, without icterus or injection. Pupils equal, round, reactive to light. Moist mucous membranes with poor dentition. NECK: Trachea is midline and mobile. No carotid bruit. CARDIOVASCULAR: Regular rate and rhythm. She has a 2/6 systolic ejection murmur noted at the left lower sternal border, does not seem to radiate. No palpable thrill. She has bilateral lower extremity 2+ pitting edema. RESPIRATORY: Clear to auscultation bilaterally without wheezes, rales or rhonchi. CHEST: No increased work of breathing. ABDOMEN: Bowel sounds positive. Nontender to palpation. She is obese, unable to palpate any organomegaly. GENITOURINARY: Deferred. EXTREMITIES: No gross deformity or contracture or fracture. However, she does have the prominent edema which we covered in SKIN. SKIN: She has a right lower extremity erythema extending a little bit above the knee, is warm, tender to palpation and she has quite a few areas of scabbing on the medial side of her calf. There is 2+ pitting edema also at the left side less than the right and this is nontender without any erythema. NEUROLOGIC: Cranial nerves II-XII intact and symmetric. Motor 5/5 throughout. DTRs difficult to elicit due to her habitus and current pain in the lower extremities, but no clonus and appropriate Babinski. PSYCHIATRIC: Alert and oriented x3. Mood and affect appropriate for current medical condition. LABORATORY DATA: She has white count of 4.3, hemoglobin 11.5, platelets of 136. Coags: PT 14.9, INR 1.4, PTT 32.8. Chemistry with a sodium of 138, potassium of 3, chloride is 99, bicarbonate 28, BUN 14, creatinine 0.81, glucose 113, iron of 40, ferritin of 81.93, total bilirubin 1, direct bilirubin 0.5, AST 36, ALT 13, alkaline phosphatase 205. BNP 329.7, albumin 2.6. Urine none recently. Serology: She is immune to hepatitis A, hepatitis B, she has surface antigen negative, surface antibody reactive and she is hepatitis core total antibody reactive as well. Hepatitis C is negative for viral load. IMAGING: She had a venous Doppler of right lower extremity which did not demonstrate any clot. ASSESSMENT AND PLAN: A 62-year-old female with: 1. Right lower extremity cellulitis. She will be placed empirically on vancomycin and Zosyn for possible failure of outpatient therapy. Blood cultures are drawn and we will consult Dr. Conroy in the morning. Wound Care is following. 2. Cirrhosis in the setting of hepatitis C, questionably hepatitis B in the past and a history of alcohol abuse. Avoid NSAIDs. We will restart Lasix and Aldactone for management of her edema. She needs a hepatoma screen. She has a CT scan without any mass noted. 3. Anemia. This is normocytic with a ferritin less than 100, perhaps iron responsive and she will need upper and lower endoscopy as an outpatient. 4. New murmur, always there is concern for endocarditis, but she has a history of hypervolemia at the last visit. We will obtain TTE. Blood cultures are ordered. 5. Hypokalemia, replete and recheck. 6. Hyperglycemia. She needs an A1c if she has not had it recently and a lipid panel may be good to follow as well. 7. Elevated LFTs, consistent with cirrhosis. 8. Elevated BNP as per TTE. We will follow that. 9. Deep venous thrombosis prophylaxis with SCDs on the noninfected leg. We will need to consider ankle brachial indexes in the future and gastrointestinal prophylaxis with diet. MTDD
--- NOTE | 2017-05-03 06:44 | HP-2 ---
CODE STATUS: FULL. PRIMARY CARE PHYSICIAN: Roseanna nevarez. ATTENDING: Dr. Carlo Manuel RESIDENT: Santiago Mcclain M.D. HISTORIAN: The patient. CHIEF COMPLAINT: Right leg swelling and pain. HISTORY OF PRESENT ILLNESS: Juliane Mora is a 62-year-old female with past medical history of hepati tis, hypertension, cirrhosis secondary to hepatitis C which is secondary to IV drug use, the hepatit is C has been treated successfully, who presents with right medial lower leg swelling. She was sent to the ER from [facility] for concern of recurrent cellulitis. She recently ran out of her home medications that she takes for chronic venous insufficiency. These included Lasix a nd spironolactone. She was admitted on 04/07/2017 and discharged on 04/17/2017 with 15 days of anti biotics which she finished yesterday. She saw Dr. Conroy on and he gave her prescription fo r antibiotics to take for many months the patient states, but she was unable to fill it due to the c ost. She states that her legs have felt tight and swollen over the last 3 days. In the ER, she has received vancomycin. PAST MEDICAL HISTORY: 1. Hypertension. 2. Chronic venous stasis. 3. Obstructive sleep apnea. 4. Back pain. 5. Asthma. 6. Hepatitis C that has been cured for the last 2-1/2 years. PAST SURGICAL HISTORY: 1. Tubal ligation. 2. Liver biopsy. ALLERGIES: No known drug allergies. MEDICATIONS: Does not take any of the following medications because she does not have enough money. 1. Metoprolol tartrate 50 mg p.o. daily. 2. Lasix 40 mg p.o. b.i.d. 3. Spironolactone 25 mg 2 tabs p.o. b.i.d. 4. Potassium 75 mg p.o. SOCIAL HISTORY: The patient quit smoking in 1999. She previously had a 29-dolg-tiwj history of smo bhanu. She states that she used to drink a lot, but quit drinking in 2003 and she admits to heroin u se in the past. Last use was in 1993. She recently got out of residential on 04/04/2017 and she is curr ently staying at [facility]. REVIEW OF SYSTEMS: Twelve point review of systems including general, eyes, ENT, respiratory, CV, GI , , skin, musculoskeletal, neuro and psych were reviewed and were negative with the exception of l ower extremity edema, constipation, lesions on her legs secondary to the edema and redness, swelling , and pain of the right leg. PHYSICAL EXAMINATION: VITAL SIGNS: Blood pressure 128/75, pulse 81, respiratory rate 17, T-max 98.0, pulse ox 98% on room air. Current weight 105 kilograms. GENERAL: The patient is alert and oriented x4, in no acute distress. Obese, appropriately interact julio. EYES: Pupils equal, round, reactive to light and accommodation. Extraocular muscles intact. Conju nctiva within normal limits. ENT: Tympanic membranes pearly stovall without bulging or erythema. Nasal mucosa and oropharynx withi n normal limits. NECK: Supple, without lymphadenopathy or thyromegaly. CARDIOVASCULAR: Regular rate and rhythm. No murmurs or gallops. Radial pulses and pedal pulses eq ual bilaterally. RESPIRATORY: Normal effort, no retractions. LUNGS: Clear to auscultation bilaterally. SKIN: Multiple tattoos on her skin. Right leg erythema and edema up to the knee. Skin is warm to the touch on the right leg. ABDOMEN: Soft, nontender, bowel sounds x4. No masses or distention. EXTREMITIES: No clubbing or cyanosis. 2+ pitting edema in both legs. MUSCULOSKELETAL: Structure and tone within normal limits. Full range of motion. NEUROLOGIC: No focal deficits. Sensation within normal limits. PSYCHIATRIC: Appropriate. LABORATORY DATA: White blood cell count 4.3, hemoglobin 11.5, hematocrit 35.8, platelets 136. Sodi um 138, potassium 3.0, chloride 99, bicarbonate 28, BUN 14, creatinine 0.81, glucose 113, calcium 8. 6, lactate 1.8. IMAGING: Vascular ultrasound showed no DVT. ASSESSMENT AND PLAN: A 62-year-old female with past medical history of cirrhosis secondary to hepat itis C, venous insufficiency, history of IV drug use, who presented with right leg erythema and swel ling. 1. Right leg cellulitis. Admit to medical. Vascular ultrasound negative for DVT. A recent admiss ion for cellulitis. Dr. Conroy has seen her in his clinic. Consult Infectious Disease in the [facility]. IV vancomycin and Zosyn. Blood cultures, pain control. Check BMP. The patient is not currentl y septic. 2. New onset murmur. Order TTE, blood cultures. Check BNP as the patient has a history of IV drug use. 3. Hypokalemia, replace potassium. Monitor. Check EKG. 4. Anemia. MCV of 90, iron studies. 5. Cirrhosis secondary to hepatitis C secondary to IV drug use. The plan was to follow up outpati ent with Dr. Partida for endoscopic evaluation. Chronic. 6. Volume overload state. Give Lasix. Restart home medications. 7. Leukopenia. Check HIV. The patient currently does not have a fever. 8. Hypertension. Restart home medications. 9. Code status: Full. DISPOSITION/LENGTH OF HOSPITAL STAY: Two days. Symptomatic medications will be provided. History and physical exam as well as management discussed with Dr. aMnuel.
[2017-05-03] MEDS: Magnesium Oxide 400 MG TAB PO SCH (08:25)
[2017-05-03] MEDS: Spironolactone 100 MG TAB PO SCH ×2 (08:25→20:17)
[2017-05-03] MEDS: Metolazone 2.5 MG TAB PO SCH (08:25)
[2017-05-03] MEDS: Enoxaparin Sodium 40 MG/0.4 ML SYRINGE SC SCH (08:25)
[2017-05-03] MEDS: Furosemide 40 MG TAB PO SCH ×2 (08:26→20:17)
[2017-05-03] MEDS: Saccharomyces boulardii 250 MG CAP PO SCH (08:26)
[2017-05-03] MEDS: Nadolol 40 MG TAB PO SCH (08:26)
[2017-05-03] MEDS: Potassium Chloride 20 MEQ TAB PO SCH (08:26)
[2017-05-03] MEDS ORDERED: Potassium Chloride 20 MEQ TAB PO SCH (09:00)
[2017-05-03] MEDS: cefTRIAXone\\ROCEPHIN 2 GM, Admixture Fee 1 EACH in Sodium Chloride 0.9% 100 ML IVPB SCH (11:36)
--- NOTE | 2017-05-03 11:42 | PDOC.PN ---
- Subjective Encounter Start Date: 05/03/17 Encounter Start Time: 08:30 -: old records requested/rev c/o right leg pain, no fever Patient seen and examined. No overnight events - Objective Resuscitation Status: Resuscitation Status FULL:Full Resuscitation MAR Reviewed: Yes Vital Signs & Weight: Vital Signs (12 hours) Temp Pulse Resp BP Pulse Ox 05/03/17 08:00 97.8 F 70 20 93 L 05/03/17 07:16 97.8 F 70 20 127/67 93 L 05/03/17 04:00 98.0 F 67 20 145/64 H 92 L 05/02/17 23:49 98.4 F 73 20 131/64 92 L Weight Admit Weight 233 lb 0.448 oz Weight 233 lb 0.448 oz I&O: 05/02/17 05/03/17 05/04/17 06:59 06:59 06:59 Intake Total 1710 Balance 1710 Result Diagrams: 05/03/17 04:17 05/03/17 04:17 Radiology Reviewed by me: Yes (us leg no dvt) Phys Exam - Physical Examination Constitutional: NAD HEENT: PERRLA, moist MMs, sclera anicteric Neck: no JVD, supple Respiratory: no wheezing, no rales, no rhonchi Cardiovascular: RRR, no significant murmur, no rub Gastrointestinal: soft, non-tender, no distention, positive bowel sounds morbid obesity right leg cellulitis Neurological: non-focal, normal sensation Psychiatric: normal affect, A&O x 3 Skin: no rash, normal turgor Dx/Plan (1) Cellulitis of right leg Code(s): L03.115 - CELLULITIS OF RIGHT LOWER LIMB Status: Acute Comment: (2) Hypokalemia Code(s): E87.6 - HYPOKALEMIA Status: Acute (3) Pancytopenia Code(s): D61.818 - OTHER PANCYTOPENIA Status: Acute (4) Anxiety and depression Code(s): F41.8 - OTHER SPECIFIED ANXIETY DISORDERS Status: Chronic (5) Asthma Code(s): J45.909 - UNSPECIFIED ASTHMA, UNCOMPLICATED Status: Chronic (6) Cirrhosis of liver Code(s): K74.60 - UNSPECIFIED CIRRHOSIS OF LIVER Status: Chronic Comment: (7) Morbid obesity with BMI of 40.0-44.9, adult Code(s): E66.01 - MORBID (SEVERE) OBESITY DUE TO EXCESS CALORIES; Z68.41 - BODY MASS INDEX (BMI) 40.0-44.9, ADULT Status: Chronic (8) Portal hypertension Code(s): K76.6 - PORTAL HYPERTENSION Status: Chronic Comment: - Plan cont current plan of care, continue antibiotics * will change zosyn to rocephin * continue vancomycin * resume home medication * medication reviewed as below * symptomatic treatment. Review of Systems - Review of Systems ENT: negative: Ear Pain, Ear Discharge, Nose Pain, Nose Discharge, Nose Congestion, Mouth Pain, Mouth Swelling, Throat Pain, Throat Swelling, Other Respiratory: negative: Cough, Dry, Shortness of Breath, Hemoptysis, SOB with Excertion, Pleuritic Pain, Sputum, Wheezing Cardiovascular: negative: Chest Pain, Palpitations, Orthopnea, Paroxysmal Noc. Dyspnea, Edema, Light Headedness, Other Gastrointestinal: negative: Nausea, Vomiting, Abdominal Pain, Diarrhea, Constipation, Melena, Hematochezia, Other Genitourinary: negative: Dysuria, Frequency, Incontinence, Hematuria, Retention , Other Musculoskeletal: Leg Pain. negative: Neck Pain, Shoulder Pain, Arm Pain, Back Pain, Hand Pain, Foot Pain, Other Skin: negative: Rash, Lesions, Filemon, Bruising, Other - Medications/Allergies Allergies/Adverse Reactions: Allergies Allergy/AdvReac Type Severity Reaction Status Date / Time No Known Allergies Allergy Verified 04/07/17 14:47 Medications: Current Medications Enoxaparin Sodium (Lovenox) 40 mg SC 0900 [facility] Last Admin: 05/03/17 08:25 Dose: 40 mg Furosemide (Lasix) 40 mg PO BID [facility] Last Admin: 05/03/17 08:26 Dose: 40 mg Vancomycin HCl 1.5 gm/ Sodium (Chloride) 300 mls @ 200 mls/hr IVPB 0600,1800 [facility] Last Admin: 05/03/17 05:57 Dose: 300 mls Ceftriaxone Sodium 2 gm/Miscellaneous Medication 1 each/ Sodium Chloride 100 mls @ 200 mls/hr IVPB 1100 [facility] Magnesium Oxide (Magnesium Oxide) 400 mg PO DAILY [facility] Last Admin: 05/03/17 08:25 Dose: 400 mg Metolazone (Zaroxolyn) 2.5 mg PO 0830 [facility] Last Admin: 05/03/17 08:25 Dose: 2.5 mg Nadolol (Corgard) 40 mg PO DAILY [facility] Last Admin: 05/03/17 08:26 Dose: 40 mg Ondansetron HCl (Zofran Odt) 4 mg PO Q6H PRN PRN Reason: Nausea/Vomiting Pantoprazole Sodium (Protonix) 40 mg PO DAILY [facility] Last Admin: 05/03/17 08:26 Dose: 40 mg Potassium Chloride (K-Dur) 40 meq PO QAM-WM [facility] Last Admin: 05/03/17 08:26 Dose: 40 meq Saccharomyces Boulardii (Florastor) 250 mg PO DAILY [facility] Last Admin: 05/03/17 08:26 Dose: 250 mg Sodium Chloride (Flush - Normal Saline) 10 ml IVF Q12HR [facility] Last Admin: 05/03/17 08:27 Dose: Not Given Sodium Chloride (Flush - Normal Saline) 10 ml IVF PRN PRN PRN Reason: Saline Flush Spironolactone (Aldactone) 100 mg PO BID [facility] Last Admin: 05/03/17 08:25 Dose: 100 mg Tramadol HCl (Ultram) 50 mg PO Q4H PRN PRN Reason: Pain Last Admin: 05/02/17 23:32 Dose: 50 mg
[2017-05-03] MEDS: traMADol HCl 50 MG TAB PO PRN (12:12)
[2017-05-04] MEDS: traMADol HCl 50 MG TAB PO PRN ×2 (04:17→19:45)
[2017-05-04] MEDS: Vancomycin HCl 1.5 GM in Sodium Chloride 0.9% 250 ML 300 ML IVPB SCH (05:30)
--- NOTE | 2017-05-04 07:12 | PDOC.PN ---
- Subjective Encounter Start Date: 05/04/17 Encounter Start Time: 07:10 -: old records requested/rev Patient seen and examined. No new complaints. No overnight events - Objective Resuscitation Status: Resuscitation Status FULL:Full Resuscitation MAR Reviewed: Yes Vital Signs & Weight: Vital Signs (12 hours) Temp Pulse Resp Pulse Ox 05/03/17 19:35 98.0 F 62 20 96 Weight Admit Weight 233 lb 0.448 oz Weight 233 lb 0.448 oz I&O: 05/03/17 05/04/17 05/05/17 06:59 06:59 06:59 Intake Total 1710 1020 Balance 1710 1020 Result Diagrams: 05/03/17 04:17 05/03/17 04:17 Phys Exam - Physical Examination Constitutional: NAD HEENT: PERRLA, moist MMs, sclera anicteric Neck: no JVD, supple Respiratory: no wheezing, no rales, no rhonchi Cardiovascular: RRR, no significant murmur, no rub Gastrointestinal: soft, positive bowel sounds ascites+ Musculoskeletal: pulses present, edema present right leg cellulitis Neurological: non-focal, normal sensation, moves all 4 limbs Psychiatric: normal affect, A&O x 3 Skin: no rash, normal turgor Dx/Plan (1) Cellulitis of right leg Code(s): L03.115 - CELLULITIS OF RIGHT LOWER LIMB Status: Acute Comment: (2) Hypokalemia Code(s): E87.6 - HYPOKALEMIA Status: Acute (3) Pancytopenia Code(s): D61.818 - OTHER PANCYTOPENIA Status: Acute (4) Anxiety and depression Code(s): F41.8 - OTHER SPECIFIED ANXIETY DISORDERS Status: Chronic (5) Asthma Code(s): J45.909 - UNSPECIFIED ASTHMA, UNCOMPLICATED Status: Chronic (6) Cirrhosis of liver Code(s): K74.60 - UNSPECIFIED CIRRHOSIS OF LIVER Status: Chronic Comment: (7) Morbid obesity with BMI of 40.0-44.9, adult Code(s): E66.01 - MORBID (SEVERE) OBESITY DUE TO EXCESS CALORIES; Z68.41 - BODY MASS INDEX (BMI) 40.0-44.9, ADULT Status: Chronic (8) Portal hypertension Code(s): K76.6 - PORTAL HYPERTENSION Status: Chronic Comment: - Plan cont current plan of care, continue antibiotics * continue vancomycin and rocephin * will repeat labs tomorrow * medication reviewed as below * symptomatic treatment * overall stable with current treatment. * culture negative so far Review of Systems - Review of Systems Constitutional: negative: Fever, Chills, Sweats, Weakness, Malaise, Other Eyes: negative: Pain, Vision Change, Conjunctivae Inflammation, Eyelid Inflammation, Redness, Other ENT: negative: Ear Pain, Ear Discharge, Nose Pain, Nose Discharge, Nose Congestion, Mouth Pain, Mouth Swelling, Throat Pain, Throat Swelling, Other Respiratory: negative: Cough, Dry, Shortness of Breath, Hemoptysis, SOB with Excertion, Pleuritic Pain, Sputum, Wheezing Cardiovascular: negative: Chest Pain, Palpitations, Orthopnea, Paroxysmal Noc. Dyspnea, Edema, Light Headedness, Other Gastrointestinal: negative: Nausea, Vomiting, Abdominal Pain, Diarrhea, Constipation, Melena, Hematochezia, Other Genitourinary: negative: Dysuria, Frequency, Incontinence, Hematuria, Retention , Other Musculoskeletal: Leg Pain. negative: Neck Pain, Shoulder Pain, Arm Pain, Back Pain, Hand Pain, Foot Pain, Other - Medications/Allergies Allergies/Adverse Reactions: Allergies Allergy/AdvReac Type Severity Reaction Status Date / Time No Known Allergies Allergy Verified 04/07/17 14:47 Medications: Current Medications Enoxaparin Sodium (Lovenox) 40 mg SC 0900 [facility] Last Admin: 05/03/17 08:25 Dose: 40 mg Furosemide (Lasix) 40 mg PO BID [facility] Last Admin: 05/03/17 20:17 Dose: 40 mg Vancomycin HCl 1.5 gm/ Sodium (Chloride) 300 mls @ 200 mls/hr IVPB 0600,1800 [facility] Last Admin: 05/04/17 05:30 Dose: 300 mls Ceftriaxone Sodium 2 gm/Miscellaneous Medication 1 each/ Sodium Chloride 100 mls @ 200 mls/hr IVPB 1100 [facility] Last Admin: 05/03/17 11:36 Dose: 100 mls Magnesium Oxide (Magnesium Oxide) 400 mg PO DAILY [facility] Last Admin: 05/03/17 08:25 Dose: 400 mg Metolazone (Zaroxolyn) 2.5 mg PO 0830 [facility] Last Admin: 05/03/17 08:25 Dose: 2.5 mg Nadolol (Corgard) 40 mg PO DAILY [facility] Last Admin: 05/03/17 08:26 Dose: 40 mg Ondansetron HCl (Zofran Odt) 4 mg PO Q6H PRN PRN Reason: Nausea/Vomiting Pantoprazole Sodium (Protonix) 40 mg PO DAILY [facility] Last Admin: 05/03/17 08:26 Dose: 40 mg Potassium Chloride (K-Dur) 40 meq PO QAM-WM [facility] Last Admin: 05/03/17 08:26 Dose: 40 meq Saccharomyces Boulardii (Florastor) 250 mg PO DAILY [facility] Last Admin: 05/03/17 08:26 Dose: 250 mg Sodium Chloride (Flush - Normal Saline) 10 ml IVF Q12HR [facility] Last Admin: 05/03/17 20:18 Dose: 10 ml Sodium Chloride (Flush - Normal Saline) 10 ml IVF PRN PRN PRN Reason: Saline Flush Spironolactone (Aldactone) 100 mg PO BID [facility] Last Admin: 05/03/17 20:17 Dose: 100 mg Tramadol HCl (Ultram) 50 mg PO Q4H PRN PRN Reason: Pain Last Admin: 05/04/17 04:17 Dose: 50 mg
[2017-05-04] MEDS: Saccharomyces boulardii 250 MG CAP PO SCH (07:21)
[2017-05-04] MEDS: Furosemide 40 MG TAB PO SCH ×2 (07:21→19:45)
[2017-05-04] MEDS: Metolazone 2.5 MG TAB PO SCH (07:22)
[2017-05-04] MEDS: Nadolol 40 MG TAB PO SCH (07:22)
[2017-05-04] MEDS: Potassium Chloride 20 MEQ TAB PO SCH (07:22)
[2017-05-04] MEDS: Spironolactone 100 MG TAB PO SCH ×2 (07:22→19:46)
[2017-05-04] MEDS: Magnesium Oxide 400 MG TAB PO SCH (07:22)
[2017-05-04] MEDS: Enoxaparin Sodium 40 MG/0.4 ML SYRINGE SC SCH (07:24)
[2017-05-04] MEDS: cefTRIAXone\\ROCEPHIN 2 GM, Admixture Fee 1 EACH in Sodium Chloride 0.9% 100 ML IVPB SCH (10:00)
[2017-05-04 17:35] LABS: Vancomycin, Trough 23.1 ug/mL
[2017-05-04] MEDS: Vancomycin HCl 1.25 GM in Sodium Chloride 0.9% 250 ML 250 ML IVPB SCH (18:08)
[2017-05-05] MEDS: Vancomycin HCl 1.25 GM in Sodium Chloride 0.9% 250 ML 250 ML IVPB SCH ×2 (05:30→18:08)
[2017-05-05] MEDS: traMADol HCl 50 MG TAB PO PRN ×2 (05:34→21:16)
[2017-05-05] MEDS ORDERED: Docusate 100 MG CAP PO PRN (07:34)
--- NOTE | 2017-05-05 07:38 | PDOC.PN ---
- Subjective Encounter Start Date: 05/05/17 Encounter Start Time: 07:36 Ms. Mora was seen in follow-up of cellulitis. She says her leg still is quite swollen, but is less red. She also notes some constipation. - Objective Resuscitation Status: Resuscitation Status FULL:Full Resuscitation MAR Reviewed: Yes Vital Signs & Weight: Vital Signs (12 hours) Temp Pulse Resp BP Pulse Ox 05/05/17 07:08 97.5 F L 65 20 134/76 92 L Weight Admit Weight 233 lb 0.448 oz Weight 233 lb 0.448 oz I&O: 05/04/17 05/05/17 05/06/17 06:59 06:59 06:59 Intake Total 1020 780 Balance 1020 780 Result Diagrams: 05/03/17 04:17 05/03/17 04:17 Phys Exam - Physical Examination HEENT: PERRLA Respiratory: no wheezing, wheezing present, clear to auscultation bilateral Cardiovascular: RRR, no significant murmur, no rub Gastrointestinal: soft, non-tender, no distention, positive bowel sounds Musculoskeletal: pulses present, edema present 2-3 + pitting edema bilaterally, + erythema in the right leg, and warmth Dx/Plan (1) Constipation Code(s): K59.00 - CONSTIPATION, UNSPECIFIED Status: Acute (2) Hypertension Code(s): I10 - ESSENTIAL (PRIMARY) HYPERTENSION Status: Acute (3) Cellulitis of right leg Code(s): L03.115 - CELLULITIS OF RIGHT LOWER LIMB Status: Acute Comment: (4) Hypokalemia Code(s): E87.6 - HYPOKALEMIA Status: Acute (5) Asthma Code(s): J45.909 - UNSPECIFIED ASTHMA, UNCOMPLICATED Status: Chronic (6) Cirrhosis of liver Code(s): K74.60 - UNSPECIFIED CIRRHOSIS OF LIVER Status: Chronic Comment: (7) Morbid obesity with BMI of 40.0-44.9, adult Code(s): E66.01 - MORBID (SEVERE) OBESITY DUE TO EXCESS CALORIES; Z68.41 - BODY MASS INDEX (BMI) 40.0-44.9, ADULT Status: Chronic - Plan * Cellulitis of the right Leg-Slowly improving Continue Rocephin and Vancomycin. * Constipation- Will add MOM, and Colace * Asthma- noted some wheezing on exam- will add Duonebs * HTN- blood pressure is controlled * Hypokalemia- will repeat lab work in the AM * Cirrhosis- compensated
[2017-05-05] MEDS: Milk Of Magnesia 30 ML UDCUP PO PRN (08:14)
[2017-05-05] MEDS: Saccharomyces boulardii 250 MG CAP PO SCH (08:15)
[2017-05-05] MEDS: Magnesium Oxide 400 MG TAB PO SCH (08:15)
[2017-05-05] MEDS: Nadolol 40 MG TAB PO SCH (08:15)
[2017-05-05] MEDS: Spironolactone 100 MG TAB PO SCH ×2 (08:15→21:04)
[2017-05-05] MEDS: Metolazone 2.5 MG TAB PO SCH (08:15)
[2017-05-05] MEDS: Furosemide 40 MG TAB PO SCH ×2 (08:15→21:03)
[2017-05-05] MEDS: Potassium Chloride 20 MEQ TAB PO SCH (08:15)
[2017-05-05] MEDS: Enoxaparin Sodium 40 MG/0.4 ML SYRINGE SC SCH (08:16)
[2017-05-05] MEDS: cefTRIAXone\\ROCEPHIN 2 GM, Admixture Fee 1 EACH in Sodium Chloride 0.9% 100 ML IVPB SCH (11:09)
[2017-05-06 05:47] LABS: #Eosinphils 0.3 thou/uL (0.0-0.7); #Lymphocytes 1.3 thou/uL (1.20-3.40); #Monocytes 0.7 thou/uL (0.11-0.59); #Neutrophils 3.7 thou/uL (1.40-6.50); %Basophils 0.7 % (0.0-1.0); %Eosinophils 4.6 % (0.0-10.0); %Lymphocytes 21.1 % (21.0-51.0); %Monocytes 12.2 % (0.0-10.0); Hematocrit 35.7 % (36.0-47.0); Mean Platelet Volume 6.9 fL (7.4-10.4); Red Blood Cell (RBC) Count 3.95 mill/uL (4.20-5.40)
[2017-05-06 05:53] LABS: Vancomycin, Trough 22.6 ug/mL
[2017-05-06 05:55] LABS: Anion Gap 9 mmol/L (10-20); BUN (Urea Nitrogen) 14 mg/dL (9.8-20.1); Calc. Creatinine Clearance 141 mL/min (70-130); Calcium 8.9 mg/dL (7.8-10.44); Carbon Dioxide 30 mmol/L (22-29); Chloride 96 mmol/L (98-107); Estimated GFR-MDRD 84
[2017-05-06] MEDS: Vancomycin HCl 1.25 GM in Sodium Chloride 0.9% 250 ML 250 ML IVPB SCH (06:26)
--- NOTE | 2017-05-06 08:22 | PDOC.PN ---
- Subjective Encounter Start Date: 05/06/17 Encounter Start Time: 08:20 Ms. Mora was seen today in follow-up for cellulitis. She notes continued swelling in her leg especially in the evening. The pain is improving. - Objective Resuscitation Status: Resuscitation Status FULL:Full Resuscitation MAR Reviewed: Yes Vital Signs & Weight: Vital Signs (12 hours) Temp Pulse Resp Pulse Ox 05/05/17 20:36 98.8 F 66 16 92 L Weight Admit Weight 233 lb 0.448 oz Weight 233 lb 0.448 oz I&O: 05/05/17 05/06/17 05/07/17 06:59 06:59 06:59 Intake Total 780 960 Balance 780 960 Result Diagrams: 05/06/17 05:11 05/06/17 05:11 Phys Exam - Physical Examination HEENT: PERRLA Respiratory: no wheezing, no rales, no rhonchi, clear to auscultation bilateral Cardiovascular: RRR, no significant murmur Gastrointestinal: soft, non-tender, positive bowel sounds Musculoskeletal: pulses present, edema present + bilateral edema, and erythema in the right leg- slightly decreased from yesterday Dx/Plan (1) Cellulitis of right leg Code(s): L03.115 - CELLULITIS OF RIGHT LOWER LIMB Status: Acute Comment: (2) Constipation Code(s): K59.00 - CONSTIPATION, UNSPECIFIED Status: Acute (3) Hypertension Code(s): I10 - ESSENTIAL (PRIMARY) HYPERTENSION Status: Acute (4) Hypokalemia Code(s): E87.6 - HYPOKALEMIA Status: Acute (5) Asthma Code(s): J45.909 - UNSPECIFIED ASTHMA, UNCOMPLICATED Status: Chronic (6) Cirrhosis of liver Code(s): K74.60 - UNSPECIFIED CIRRHOSIS OF LIVER Status: Chronic Comment: (7) Morbid obesity with BMI of 40.0-44.9, adult Code(s): E66.01 - MORBID (SEVERE) OBESITY DUE TO EXCESS CALORIES; Z68.41 - BODY MASS INDEX (BMI) 40.0-44.9, ADULT Status: Chronic - Plan * Cellulitis- slowly improving- will continue IV antibiotics * HTN- blood pressure is controlled * Constipation- improved .
[2017-05-06] MEDS: Spironolactone 100 MG TAB PO SCH ×2 (08:42→21:13)
[2017-05-06] MEDS: Magnesium Oxide 400 MG TAB PO SCH (08:42)
[2017-05-06] MEDS: Metolazone 2.5 MG TAB PO SCH (08:43)
[2017-05-06] MEDS: Saccharomyces boulardii 250 MG CAP PO SCH (08:43)
[2017-05-06] MEDS: Nadolol 40 MG TAB PO SCH (08:43)
[2017-05-06] MEDS: Furosemide 40 MG TAB PO SCH ×2 (08:43→21:12)
[2017-05-06] MEDS: Potassium Chloride 20 MEQ TAB PO SCH (08:43)
[2017-05-06] MEDS: Enoxaparin Sodium 40 MG/0.4 ML SYRINGE SC SCH (08:48)
[2017-05-06] MEDS: Vancomycin HCl 1 GM in Premix Bag 1 BAG IVPB SCH ×2 (08:49→21:13)
[2017-05-06] MEDS: Milk Of Magnesia 30 ML UDCUP PO PRN (08:55)
[2017-05-06] MEDS: traMADol HCl 50 MG TAB PO PRN ×2 (08:55→21:26)
[2017-05-06] MEDS: cefTRIAXone\\ROCEPHIN 2 GM, Admixture Fee 1 EACH in Sodium Chloride 0.9% 100 ML IVPB SCH (11:51)
[2017-05-07] MEDS: Potassium Chloride 20 MEQ TAB PO SCH (08:26)
[2017-05-07] MEDS: Magnesium Oxide 400 MG TAB PO SCH (08:27)
[2017-05-07] MEDS: Enoxaparin Sodium 40 MG/0.4 ML SYRINGE SC SCH (08:27)
[2017-05-07] MEDS: Nadolol 40 MG TAB PO SCH (08:28)
[2017-05-07] MEDS: Furosemide 40 MG TAB PO SCH ×2 (08:28→20:33)
[2017-05-07] MEDS: Spironolactone 100 MG TAB PO SCH ×2 (08:28→20:33)
[2017-05-07] MEDS: Saccharomyces boulardii 250 MG CAP PO SCH (08:28)
[2017-05-07] MEDS: Metolazone 2.5 MG TAB PO SCH (08:29)
[2017-05-07] MEDS: Vancomycin HCl 1 GM in Premix Bag 1 BAG IVPB SCH ×2 (08:29→21:14)
--- NOTE | 2017-05-07 09:34 | PDOC.PN ---
- Subjective Encounter Start Date: 05/07/17 Encounter Start Time: 09:32 Ms. Mora was seen today in follow-up of cellulitis. She feels she is beginning to see some improvement in her leg now. Itstill swells and there is still some redness there. - Objective Resuscitation Status: Resuscitation Status FULL:Full Resuscitation MAR Reviewed: Yes Vital Signs & Weight: Vital Signs (12 hours) Temp Pulse Resp BP Pulse Ox 05/07/17 08:49 97.6 F 61 18 133/74 92 L Weight Admit Weight 233 lb 0.448 oz Weight 233 lb 0.448 oz I&O: 05/06/17 05/07/17 05/08/17 06:59 06:59 06:59 Intake Total 960 2810 Balance 960 2810 Result Diagrams: 05/06/17 05:11 05/06/17 05:11 Phys Exam - Physical Examination HEENT: PERRLA Respiratory: no wheezing, no rales, no rhonchi, clear to auscultation bilateral Cardiovascular: RRR, no significant murmur Gastrointestinal: soft, non-tender, positive bowel sounds Musculoskeletal: pulses present, edema present 2-3 + pitting edema, erythema on the left leg, now more pronouned on the anterior chin Dx/Plan (1) Cellulitis of right leg Code(s): L03.115 - CELLULITIS OF RIGHT LOWER LIMB Status: Acute Comment: (2) Constipation Code(s): K59.00 - CONSTIPATION, UNSPECIFIED Status: Acute (3) Hypertension Code(s): I10 - ESSENTIAL (PRIMARY) HYPERTENSION Status: Acute (4) Hypokalemia Code(s): E87.6 - HYPOKALEMIA Status: Acute (5) Asthma Code(s): J45.909 - UNSPECIFIED ASTHMA, UNCOMPLICATED Status: Chronic (6) Cirrhosis of liver Code(s): K74.60 - UNSPECIFIED CIRRHOSIS OF LIVER Status: Chronic Comment: (7) Morbid obesity with BMI of 40.0-44.9, adult Code(s): E66.01 - MORBID (SEVERE) OBESITY DUE TO EXCESS CALORIES; Z68.41 - BODY MASS INDEX (BMI) 40.0-44.9, ADULT Status: Chronic - Plan * Cellulitis of the left Leg- slowly improving- will add Flagyl for anaerobic coverage * HTN- blood pressure is controlled * Chronic venous stasis- keep legs elevated.
[2017-05-07] MEDS: traMADol HCl 50 MG TAB PO PRN ×2 (11:31→20:36)
[2017-05-07] MEDS: cefTRIAXone\\ROCEPHIN 2 GM, Admixture Fee 1 EACH in Sodium Chloride 0.9% 100 ML IVPB SCH (11:33)
[2017-05-07] MEDS: metroNIDAZOLE 500 MG TAB PO SCH ×2 (14:46→20:33)
[2017-05-08] MEDS: Furosemide 40 MG TAB PO SCH ×2 (05:13→14:29)
[2017-05-08] MEDS: metroNIDAZOLE 500 MG TAB PO SCH ×3 (08:35→19:55)
[2017-05-08] MEDS: Potassium Chloride 20 MEQ TAB PO SCH (08:35)
[2017-05-08] MEDS: Saccharomyces boulardii 250 MG CAP PO SCH (08:35)
[2017-05-08] MEDS: Nadolol 40 MG TAB PO SCH (08:36)
[2017-05-08] MEDS: Enoxaparin Sodium 40 MG/0.4 ML SYRINGE SC SCH (08:36)
[2017-05-08] MEDS: Spironolactone 100 MG TAB PO SCH ×2 (08:36→19:56)
[2017-05-08] MEDS: Metolazone 2.5 MG TAB PO SCH (08:36)
[2017-05-08] MEDS: Magnesium Oxide 400 MG TAB PO SCH (08:36)
--- NOTE | 2017-05-08 09:36 | PDOC.PN ---
- Subjective Encounter Start Date: 05/08/17 Encounter Start Time: 09:34 Ms. Mora was seen today in follow-up of cellulitis of te left leg. She notes continued improvement, and less leg pain. - Objective Resuscitation Status: Resuscitation Status FULL:Full Resuscitation MAR Reviewed: Yes Vital Signs & Weight: Vital Signs (12 hours) Temp Pulse Resp BP Pulse Ox 05/08/17 08:00 97.6 F 53 L 18 125/75 93 L Weight Admit Weight 233 lb 0.448 oz Weight 233 lb 0.448 oz I&O: 05/07/17 05/08/17 05/09/17 06:59 06:59 06:59 Intake Total 2810 1650 Balance 2810 1650 Result Diagrams: 05/06/17 05:11 05/06/17 05:11 Phys Exam - Physical Examination HEENT: PERRLA Respiratory: no wheezing, no rales, no rhonchi Cardiovascular: RRR, no significant murmur, no rub Gastrointestinal: soft, non-tender, positive bowel sounds Musculoskeletal: pulses present, edema present + bilateral edema, and redness in the left leg, and warmth Dx/Plan (1) Cellulitis of right leg Code(s): L03.115 - CELLULITIS OF RIGHT LOWER LIMB Status: Acute Comment: (2) Constipation Code(s): K59.00 - CONSTIPATION, UNSPECIFIED Status: Acute (3) Hypertension Code(s): I10 - ESSENTIAL (PRIMARY) HYPERTENSION Status: Acute (4) Hypokalemia Code(s): E87.6 - HYPOKALEMIA Status: Acute (5) Asthma Code(s): J45.909 - UNSPECIFIED ASTHMA, UNCOMPLICATED Status: Chronic (6) Cirrhosis of liver Code(s): K74.60 - UNSPECIFIED CIRRHOSIS OF LIVER Status: Chronic Comment: (7) Morbid obesity with BMI of 40.0-44.9, adult Code(s): E66.01 - MORBID (SEVERE) OBESITY DUE TO EXCESS CALORIES; Z68.41 - BODY MASS INDEX (BMI) 40.0-44.9, ADULT Status: Chronic - Plan * Cellulitis- improving- continue current antibiotics * Cirrhosis- stable, and compensated. * Asthma- stable
[2017-05-08] MEDS: cefTRIAXone\\ROCEPHIN 2 GM, Admixture Fee 1 EACH in Sodium Chloride 0.9% 100 ML IVPB SCH (11:04)
[2017-05-08] MEDS: traMADol HCl 50 MG TAB PO PRN (19:56)
[2017-05-09] MEDS: Furosemide 40 MG TAB PO SCH ×2 (05:47→14:56)
[2017-05-09] MEDS: Potassium Chloride 20 MEQ TAB PO SCH (08:29)
[2017-05-09] MEDS: Spironolactone 100 MG TAB PO SCH ×2 (08:29→20:17)
[2017-05-09] MEDS: Saccharomyces boulardii 250 MG CAP PO SCH (08:29)
[2017-05-09] MEDS: Magnesium Oxide 400 MG TAB PO SCH (08:29)
[2017-05-09] MEDS: Nadolol 40 MG TAB PO SCH (08:29)
[2017-05-09] MEDS: Enoxaparin Sodium 40 MG/0.4 ML SYRINGE SC SCH (08:29)
[2017-05-09] MEDS: metroNIDAZOLE 500 MG TAB PO SCH ×3 (08:30→20:18)
[2017-05-09] MEDS: Metolazone 2.5 MG TAB PO SCH (08:30)
--- NOTE | 2017-05-09 09:26 | PDOC.PN ---
- Subjective Encounter Start Date: 05/09/17 Encounter Start Time: 09:24 Ms. Mora was seen today in follow-up for cellulitis. She notes continued improvement in her leg. It will still swell towards the end of the day. - Objective Resuscitation Status: Resuscitation Status FULL:Full Resuscitation MAR Reviewed: Yes Vital Signs & Weight: Vital Signs (12 hours) Temp Pulse Resp BP Pulse Ox 05/09/17 08:50 97.9 F 69 20 125/72 96 Weight Admit Weight 233 lb 0.448 oz Weight 233 lb 0.448 oz I&O: 05/08/17 05/09/17 05/10/17 06:59 06:59 06:59 Intake Total 1650 2400 Balance 1650 2400 Result Diagrams: 05/06/17 05:11 05/06/17 05:11 Phys Exam - Physical Examination HEENT: PERRLA Respiratory: no wheezing, no rales, no rhonchi Cardiovascular: RRR, no significant murmur Gastrointestinal: soft, non-tender, positive bowel sounds Musculoskeletal: pulses present, edema present + swelling in both legs, and erythema in the left leg and warmth slight improvement from yesterday Dx/Plan (1) Cellulitis of right leg Code(s): L03.115 - CELLULITIS OF RIGHT LOWER LIMB Status: Acute Comment: (2) Constipation Code(s): K59.00 - CONSTIPATION, UNSPECIFIED Status: Acute (3) Hypertension Code(s): I10 - ESSENTIAL (PRIMARY) HYPERTENSION Status: Acute (4) Hypokalemia Code(s): E87.6 - HYPOKALEMIA Status: Acute (5) Asthma Code(s): J45.909 - UNSPECIFIED ASTHMA, UNCOMPLICATED Status: Chronic (6) Cirrhosis of liver Code(s): K74.60 - UNSPECIFIED CIRRHOSIS OF LIVER Status: Chronic Comment: (7) Morbid obesity with BMI of 40.0-44.9, adult Code(s): E66.01 - MORBID (SEVERE) OBESITY DUE TO EXCESS CALORIES; Z68.41 - BODY MASS INDEX (BMI) 40.0-44.9, ADULT Status: Chronic - Plan * Cellulitis- slowly improving. She can likely be transitioned to oral antibiotics tomorrow * HTN - blood pressure * Asthma- clinically stable * Home in AM .
[2017-05-09] MEDS: cefTRIAXone\\ROCEPHIN 2 GM, Admixture Fee 1 EACH in Sodium Chloride 0.9% 100 ML IVPB SCH (10:45)
[2017-05-09] MEDS: traMADol HCl 50 MG TAB PO PRN (20:18)
[2017-05-10] MEDS: traMADol HCl 50 MG TAB PO PRN ×2 (01:37→18:29)
[2017-05-10] MEDS: Furosemide 40 MG TAB PO SCH ×2 (05:36→13:56)
[2017-05-10] MEDS: Milk Of Magnesia 30 ML UDCUP PO PRN (05:36)
[2017-05-10] MEDS: metroNIDAZOLE 500 MG TAB PO SCH ×3 (07:59→20:34)
[2017-05-10] MEDS: Saccharomyces boulardii 250 MG CAP PO SCH (07:59)
[2017-05-10] MEDS: Magnesium Oxide 400 MG TAB PO SCH (07:59)
[2017-05-10] MEDS: Nadolol 40 MG TAB PO SCH (07:59)
[2017-05-10] MEDS: Spironolactone 100 MG TAB PO SCH ×2 (07:59→20:34)
[2017-05-10] MEDS: Potassium Chloride 20 MEQ TAB PO SCH (07:59)
[2017-05-10] MEDS: Metolazone 2.5 MG TAB PO SCH (08:00)
[2017-05-10] MEDS: Enoxaparin Sodium 40 MG/0.4 ML SYRINGE SC SCH (08:00)
[2017-05-10] MEDS: cefTRIAXone\\ROCEPHIN 2 GM, Admixture Fee 1 EACH in Sodium Chloride 0.9% 100 ML IVPB SCH (11:58)
--- NOTE | 2017-05-10 12:51 | PDOC.PN ---
- Subjective Encounter Start Date: 05/10/17 Encounter Start Time: 08:30 Patient seen and examined. last night she was sick, this morning she does not feel to go home. No overnight events - Objective Resuscitation Status: Resuscitation Status FULL:Full Resuscitation MAR Reviewed: Yes Vital Signs & Weight: Vital Signs (12 hours) Temp Pulse Resp BP Pulse Ox 05/10/17 11:54 97.4 F L 62 18 151/77 H 96 05/10/17 08:00 98.1 F 58 L 20 133/68 94 L Weight Admit Weight 233 lb 0.448 oz Weight 233 lb 0.448 oz I&O: 05/09/17 05/10/17 05/11/17 06:59 06:59 06:59 Intake Total 2400 2320 Balance 2400 2320 Result Diagrams: 05/06/17 05:11 05/06/17 05:11 Phys Exam - Physical Examination Constitutional: NAD HEENT: PERRLA, moist MMs, sclera anicteric Neck: no JVD, supple Respiratory: no wheezing, no rales, no rhonchi Cardiovascular: RRR, no significant murmur, no rub Gastrointestinal: soft, non-tender, no distention, positive bowel sounds cellulitis improving Neurological: non-focal, normal sensation, moves all 4 limbs Psychiatric: normal affect, A&O x 3 Skin: no rash, normal turgor Dx/Plan (1) Cellulitis of right leg Code(s): L03.115 - CELLULITIS OF RIGHT LOWER LIMB Status: Acute Comment: (2) Hypokalemia Code(s): E87.6 - HYPOKALEMIA Status: Acute (3) Pancytopenia Code(s): D61.818 - OTHER PANCYTOPENIA Status: Acute (4) Anxiety and depression Code(s): F41.8 - OTHER SPECIFIED ANXIETY DISORDERS Status: Chronic (5) Asthma Code(s): J45.909 - UNSPECIFIED ASTHMA, UNCOMPLICATED Status: Chronic (6) Cirrhosis of liver Code(s): K74.60 - UNSPECIFIED CIRRHOSIS OF LIVER Status: Chronic Comment: (7) Morbid obesity with BMI of 40.0-44.9, adult Code(s): E66.01 - MORBID (SEVERE) OBESITY DUE TO EXCESS CALORIES; Z68.41 - BODY MASS INDEX (BMI) 40.0-44.9, ADULT Status: Chronic (8) Portal hypertension Code(s): K76.6 - PORTAL HYPERTENSION Status: Chronic Comment: - Plan cont current plan of care, continue antibiotics * she will be discharged tomorrow with ride with family * she is released from [facility] and she will go to [place] * medication reviewed as below * symptomatic treatment. Review of Systems - Review of Systems ENT: negative: Ear Pain, Ear Discharge, Nose Pain, Nose Discharge, Nose Congestion, Mouth Pain, Mouth Swelling, Throat Pain, Throat Swelling, Other Respiratory: negative: Cough, Dry, Shortness of Breath, Hemoptysis, SOB with Excertion, Pleuritic Pain, Sputum, Wheezing Cardiovascular: negative: Chest Pain, Palpitations, Orthopnea, Paroxysmal Noc. Dyspnea, Edema, Light Headedness, Other Gastrointestinal: Nausea. negative: Vomiting, Abdominal Pain, Diarrhea, Constipation, Melena, Hematochezia, Other Genitourinary: negative: Dysuria, Frequency, Incontinence, Hematuria, Retention , Other Musculoskeletal: negative: Neck Pain, Shoulder Pain, Arm Pain, Back Pain, Hand Pain, Leg Pain, Foot Pain, Other - Medications/Allergies Allergies/Adverse Reactions: Allergies Allergy/AdvReac Type Severity Reaction Status Date / Time No Known Allergies Allergy Verified 04/07/17 14:47 Medications: Current Medications Albuterol/Ipratropium (Duoneb) 3 ml NEB [id number] PRN PRN Reason: SOB &/or Wheezing Docusate Sodium (Colace) 100 mg PO BIDPRN PRN PRN Reason: Constipation Enoxaparin Sodium (Lovenox) 40 mg SC 0900 [facility] Last Admin: 05/10/17 08:00 Dose: 40 mg Furosemide (Lasix) 40 mg PO 0600,1400 [facility] Last Admin: 05/10/17 05:36 Dose: 40 mg Ceftriaxone Sodium 2 gm/Miscellaneous Medication 1 each/ Sodium Chloride 100 mls @ 200 mls/hr IVPB 1100 [facility] Last Admin: 05/10/17 11:58 Dose: 100 mls Vancomycin HCl 2 gm/ Sodium (Chloride) 500 mls @ 250 mls/hr IVPB 1800 [facility] Last Admin: 05/09/17 18:07 Dose: 500 mls Magnesium Hydroxide (Milk Of Magnesium) 30 ml PO DAILYPRN PRN PRN Reason: Constipation Last Admin: 05/10/17 05:36 Dose: 30 ml Magnesium Oxide (Magnesium Oxide) 400 mg PO DAILY [facility] Last Admin: 05/10/17 07:59 Dose: 400 mg Metolazone (Zaroxolyn) 2.5 mg PO 0830 [facility] Last Admin: 05/10/17 08:00 Dose: 2.5 mg Metronidazole (Flagyl) 500 mg PO TID [facility] Last Admin: 05/10/17 07:59 Dose: 500 mg Miscellaneous Medication (Pharmacy To Dose) 1 each IVPB PRN PRN PRN Reason: . Nadolol (Corgard) 40 mg PO DAILY [facility] Last Admin: 05/10/17 07:59 Dose: 40 mg Ondansetron HCl (Zofran Odt) 4 mg PO Q6H PRN PRN Reason: Nausea/Vomiting Pantoprazole Sodium (Protonix) 40 mg PO DAILY [facility] Last Admin: 05/10/17 07:59 Dose: 40 mg Potassium Chloride (K-Dur) 40 meq PO QAM-WM [facility] Last Admin: 05/10/17 07:59 Dose: 40 meq Saccharomyces Boulardii (Florastor) 250 mg PO DAILY [facility] Last Admin: 05/10/17 07:59 Dose: 250 mg Sodium Chloride (Flush - Normal Saline) 10 ml IVF Q12HR [facility] Last Admin: 05/10/17 08:01 Dose: 10 ml Sodium Chloride (Flush - Normal Saline) 10 ml IVF PRN PRN PRN Reason: Saline Flush Spironolactone (Aldactone) 100 mg PO BID [facility] Last Admin: 05/10/17 07:59 Dose: 100 mg Tramadol HCl (Ultram) 50 mg PO Q4H PRN PRN Reason: Pain Last Admin: 05/10/17 01:37 Dose: 50 mg
[2017-05-10 17:12] LABS: Vancomycin, Trough 18.6 ug/mL
[2017-05-11] MEDS: Furosemide 40 MG TAB PO SCH ×2 (05:46→14:28)
[2017-05-11] MEDS: Enoxaparin Sodium 40 MG/0.4 ML SYRINGE SC SCH (08:14)
[2017-05-11] MEDS: Spironolactone 100 MG TAB PO SCH (08:14)
[2017-05-11] MEDS: metroNIDAZOLE 500 MG TAB PO SCH ×2 (08:14→14:29)
[2017-05-11] MEDS: Saccharomyces boulardii 250 MG CAP PO SCH (08:14)
[2017-05-11] MEDS: Potassium Chloride 20 MEQ TAB PO SCH (08:14)
[2017-05-11] MEDS: Nadolol 40 MG TAB PO SCH (08:15)
[2017-05-11] MEDS: Magnesium Oxide 400 MG TAB PO SCH (08:15)
[2017-05-11] MEDS: Metolazone 2.5 MG TAB PO SCH (08:15)
[2017-05-11] MEDS: cefTRIAXone\\ROCEPHIN 2 GM, Admixture Fee 1 EACH in Sodium Chloride 0.9% 100 ML IVPB SCH (10:59)
--- NOTE | 2017-05-11 12:25 | PDOC.PN ---
- Subjective Encounter Start Date: 05/11/17 Encounter Start Time: 09:10 Patient seen and examined. No new complaints. No overnight events - Objective Resuscitation Status: Resuscitation Status FULL:Full Resuscitation MAR Reviewed: Yes Vital Signs & Weight: Vital Signs (12 hours) Temp Pulse Resp BP Pulse Ox 05/11/17 08:00 98.0 F 62 18 95 05/11/17 07:55 98.0 F 62 18 158/76 H 95 Weight Admit Weight 233 lb 0.448 oz Weight 233 lb 0.448 oz I&O: 05/10/17 05/11/17 05/12/17 06:59 06:59 06:59 Intake Total 2320 2400 Balance 2320 2400 Result Diagrams: 05/06/17 05:11 05/06/17 05:11 Additional Labs: Accuchecks 05/11/17 11:36 POC Glucose 107 Phys Exam - Physical Examination Constitutional: NAD HEENT: PERRLA, moist MMs, sclera anicteric Neck: no JVD, supple Respiratory: no wheezing, no rales, no rhonchi Cardiovascular: RRR, no significant murmur, no rub Gastrointestinal: soft, non-tender, no distention, positive bowel sounds Musculoskeletal: no edema, pulses present cellulitis improving Neurological: non-focal, normal sensation, moves all 4 limbs Psychiatric: normal affect, A&O x 3 Skin: no rash, normal turgor Dx/Plan (1) Cellulitis of right leg Code(s): L03.115 - CELLULITIS OF RIGHT LOWER LIMB Status: Acute Comment: (2) Hypokalemia Code(s): E87.6 - HYPOKALEMIA Status: Acute (3) Pancytopenia Code(s): D61.818 - OTHER PANCYTOPENIA Status: Acute (4) Anxiety and depression Code(s): F41.8 - OTHER SPECIFIED ANXIETY DISORDERS Status: Chronic (5) Asthma Code(s): J45.909 - UNSPECIFIED ASTHMA, UNCOMPLICATED Status: Chronic (6) Cirrhosis of liver Code(s): K74.60 - UNSPECIFIED CIRRHOSIS OF LIVER Status: Chronic Comment: (7) Morbid obesity with BMI of 40.0-44.9, adult Code(s): E66.01 - MORBID (SEVERE) OBESITY DUE TO EXCESS CALORIES; Z68.41 - BODY MASS INDEX (BMI) 40.0-44.9, ADULT Status: Chronic (8) Portal hypertension Code(s): K76.6 - PORTAL HYPERTENSION Status: Chronic Comment: - Plan cont current plan of care, continue antibiotics * medication reviewed as below * symptomatic treatment * see discharge raiza. Review of Systems - Review of Systems ENT: negative: Ear Pain, Ear Discharge, Nose Pain, Nose Discharge, Nose Congestion, Mouth Pain, Mouth Swelling, Throat Pain, Throat Swelling, Other Respiratory: negative: Cough, Dry, Shortness of Breath, Hemoptysis, SOB with Excertion, Pleuritic Pain, Sputum, Wheezing Cardiovascular: negative: Chest Pain, Palpitations, Orthopnea, Paroxysmal Noc. Dyspnea, Edema, Light Headedness, Other Gastrointestinal: negative: Nausea, Vomiting, Abdominal Pain, Diarrhea, Constipation, Melena, Hematochezia, Other Genitourinary: negative: Dysuria, Frequency, Incontinence, Hematuria, Retention , Other Musculoskeletal: negative: Neck Pain, Shoulder Pain, Arm Pain, Back Pain, Hand Pain, Leg Pain, Foot Pain, Other - Medications/Allergies Allergies/Adverse Reactions: Allergies Allergy/AdvReac Type Severity Reaction Status Date / Time No Known Allergies Allergy Verified 04/07/17 14:47 Medications: Current Medications Albuterol/Ipratropium (Duoneb) 3 ml NEB [id number] PRN PRN Reason: SOB &/or Wheezing Docusate Sodium (Colace) 100 mg PO BIDPRN PRN PRN Reason: Constipation Enoxaparin Sodium (Lovenox) 40 mg SC 0900 [facility] Last Admin: 05/11/17 08:14 Dose: 40 mg Furosemide (Lasix) 40 mg PO 0600,1400 [facility] Last Admin: 05/11/17 05:46 Dose: 40 mg Ceftriaxone Sodium 2 gm/Miscellaneous Medication 1 each/ Sodium Chloride 100 mls @ 200 mls/hr IVPB 1100 [facility] Last Admin: 05/11/17 10:59 Dose: 100 mls Vancomycin HCl 2 gm/ Sodium (Chloride) 500 mls @ 250 mls/hr IVPB 1800 [facility] Last Admin: 05/10/17 18:29 Dose: 500 mls Magnesium Hydroxide (Milk Of Magnesium) 30 ml PO DAILYPRN PRN PRN Reason: Constipation Last Admin: 05/10/17 05:36 Dose: 30 ml Magnesium Oxide (Magnesium Oxide) 400 mg PO DAILY [facility] Last Admin: 05/11/17 08:15 Dose: 400 mg Metolazone (Zaroxolyn) 2.5 mg PO 0830 [facility] Last Admin: 05/11/17 08:15 Dose: 2.5 mg Metronidazole (Flagyl) 500 mg PO TID [facility] Last Admin: 05/11/17 08:14 Dose: 500 mg Miscellaneous Medication (Pharmacy To Dose) 1 each IVPB PRN PRN PRN Reason: . Nadolol (Corgard) 40 mg PO DAILY [facility] Last Admin: 05/11/17 08:15 Dose: 40 mg Ondansetron HCl (Zofran Odt) 4 mg PO Q6H PRN PRN Reason: Nausea/Vomiting Pantoprazole Sodium (Protonix) 40 mg PO DAILY [facility] Last Admin: 05/11/17 08:15 Dose: 40 mg Potassium Chloride (K-Dur) 40 meq PO QAM-WM [facility] Last Admin: 05/11/17 08:14 Dose: 40 meq Saccharomyces Boulardii (Florastor) 250 mg PO DAILY [facility] Last Admin: 05/11/17 08:14 Dose: 250 mg Sodium Chloride (Flush - Normal Saline) 10 ml IVF Q12HR [facility] Last Admin: 05/11/17 08:15 Dose: 10 ml Sodium Chloride (Flush - Normal Saline) 10 ml IVF PRN PRN PRN Reason: Saline Flush Spironolactone (Aldactone) 100 mg PO BID [facility] Last Admin: 05/11/17 08:14 Dose: 100 mg
--- NOTE | 2017-05-11 14:03 | DIS ---
DATE OF ADMISISON: 05/02/2017 DATE OF DISCHARGE: 05/11/2017 PRIMARY CARE PHYSICIAN: [facility] call admission. DISCHARGE DISPOSITION: Home. PRIMARY DISCHARGE DIAGNOSES: 1. Right leg cellulitis. 2. Constipation. 3. Hypokalemia. SECONDARY DISCHARGE DIAGNOSES: 1. Cirrhosis of liver. 2. Portal hypertension. 3. Morbid obesity with BMI of 41. 4. Asthma. 5. Anxiety and depression. 6. Pancytopenia. PRIMARY PROCEDURE/OPERATION: None. RADIOLOGICAL INVESTIGATION: Ultrasound was negative for any DVT. Echocardiography showed normal EF. SIGNIFICANT LABORATORY DATA: WBC 6.0, hemoglobin 11.2, platelets 158, INR 1.2. Sodium 131, potassiu m 4.1, BUN 14, creatinine 0.71, calcium 8.9, AST 27, ALT 12, alkaline phosphatase 153, albumin 2.5. Vitamin B12 464, folate 9.10. Urine drug screen negative. HIV negative, RPR negative. Blood cultur e negative. DISCHARGE MEDICATIONS: Keflex 500 mg p.o. b.i.d. for 10 days, doxycycline 100 mg p.o. b.i.d. for 10 days, Florastor 250 mg p.o. daily for 10 days, Flagyl 500 mg t.i.d. for 10 days, Lasix 40 mg p.o. b.i .d., magnesium oxide 400 mg p.o. daily, Zaroxolyn 2.5 mg p.o. daily, Corgard 40 mg p.o. daily, omepra zole 20 mg p.o. daily, potassium chloride 20 mEq p.o. b.i.d., Aldactone 100 mg p.o. b.i.d. CONTRAINDICATIONS: None. CODE STATUS: FULL CODE. INPATIENT CONSULTANTS: None. ALLERGIES: No known drug allergy. DISCHARGE PLAN: Post hospital, the patient will follow up with primary care physician. HOSPITAL COURSE: A 62-year-old female with the above-mentioned medical problem, who was initially ad mitted by Family [facility] residency program, but subsequently this patient was transferred to us for further care because she was admitted recently in our service as well. The patient came to emergency room from [facility] for right lower extremity cellulitis. Patient has underlying above-mentioned medic al problems. She was admitted to medical floor. She was treated with Rocephin while in hospital. S he was also given vancomycin for Staph coverage with IV antibiotic therapy. Patient had significant improvement and by the time of discharge, her cultures remain negative. This patient will need prolo nged oral antibiotic therapy as well as prophylactic antibiotic therapy to prevent recurrent cellulit is. The patient's home medication was continued while in hospital as well as on discharge. Her cons tipation was also treated with stool softener while in hospital. The patient is seen and examined at bedside today. Please see my progress note from today for furthe r detail. All new medication prescription given to her. Total time spent on discharge day 31 minutes.
[2017-05-11 18:06] VITALS: BP 148/79; TEMP 98.3
== END 2017-05-11 17:45 | disposition home or self-care (01) | DRG 603 ==
LOC: ERS 13:54 → T4-A 18:00
PROVIDERS: ADMIT Emergency Medicine; ATTEND Emergency Medicine
DX: L03.115 Cellulitis of right lower limb (principal); D61.818 Other pancytopenia; K76.6 Portal hypertension; Z68.41 Body mass index [BMI] 40.0-44.9, adult; E87.70 Fluid overload, unspecified; E66.01 Morbid (severe) obesity due to excess calories; K74.69 Other cirrhosis of liver; I10 Essential (primary) hypertension; Z86.19 Personal history of other infectious and parasitic diseases; I87.8 Other specified disorders of veins; G47.33 Obstructive sleep apnea (adult) (pediatric); M54.9 Dorsalgia, unspecified; J45.909 Unspecified asthma, uncomplicated; Z87.891 Personal history of nicotine dependence; F15.11 Other stimulant abuse, in remission; R01.1 Cardiac murmur, unspecified; E87.6 Hypokalemia; D72.819 Decreased white blood cell count, unspecified; F10.21 Alcohol dependence, in remission; G89.29 Other chronic pain; R73.9 Hyperglycemia, unspecified; K59.00 Constipation, unspecified; F41.9 Anxiety disorder, unspecified; F32.9 Major depressive disorder, single episode, unspecified; D64.9 Anemia, unspecified
CPT/HCPCS: 36415; 36416; 80048; 80053; 80076; 80202; 80306; 82607; 82728; 82746; 83540; 83550; 83605; 83880; 85025; 85046; 85610; 85730; 86780; 87040; 87389; 93306; 96365; 96375; A4216; J0696; J1650; J1885; J2405; J2543; J3370; J7050